=== PATIENT | male | born 1950 | race Caucasian/White ===

== ENCOUNTER 2021-04-10 07:05 | Day surgery (SDC) | payer MEDICARE ==
[~2021-04-10 07:05] MED LIST: LACTATED RINGERS 1,000 ML IV SCH
[2021-04-10 07:32] VITALS: TEMP 98.4
[2021-04-10 07:48] LABS: Glucose,Whole Blood 178 mg/dL (75-99)
[2021-04-10] MEDS ORDERED: LIDOCAINE 1% INJ 10MG/ML (20 ML MDV) ONE (08:43)
[2021-04-10] MEDS ORDERED: PROPOFOL 10 MG/ML 20 ML VIAL IV ONE (08:43)
--- NOTE | 2021-04-10 09:30 | P.PCN ---
Date of Procedure: 04/10/21 Description of Procedure: Brief history: Patient is a pleasant 71-year-old male presenting for outpatient EGD and colonoscopy for evaluation of symptoms of nausea and vomiting and diarrhea. The patient been seen in the clinic reporting intermittent episodes of nausea and vomiting as well as diarrhea. The diarrhea had become more frequent with the patient describing more bowel movements than he could count. Last colonoscopy over 10 years ago. Procedure performed: Esophagogastroduodenoscopy with biopsy Colonoscopy with biopsy Estimated blood loss: Minimal. Preoperative diagnosis: Nausea and vomiting, diarrhea, patient reports last colonoscopy over 10 years ago Anesthesia: MAC Procedure: After informed consent was obtained from the patient was brought into the endoscopy unit and IV sedation was administered by anesthesia under continuous monitoring. Initially upper endoscopy was done. The Olympus GF 190 video endoscope was inserted into the mouth and esophagus intubated without any difficulty and was gradually advanced into the stomach and duodenum and carefully examined. The bulb and second part of the duodenum appeared normal, with biopsies taken to rule out celiac sprue. The scope was then withdrawn into the stomach adequately insufflated with air and upon careful examination the antrum and body, cardia and fundus appeared normal, except for some mild scattered erythema suggestive of mild gastritis with biopsies of antrum and body taken. The scope was then withdrawn into the esophagus. The GE junction was located at 40 cm to the incisors. It was significant for 5 cm of LA grade D esophagitis in the distal esophagus with lower esophageal biopsies taken. Rest of the esophagus appeared normal. Patient tolerated the procedure well. At this time the patient continued to remain sedation. Initial digital rectal examination was normal. Olympus CF 190 video colonoscope was then inserted into the rectum and gradually advanced to the cecum without any difficulty. Careful examination was performed as the scope was gradually being withdrawn. The prep was excellent. The cecum, ascending colon, transverse colon, descending colon, sigmoid colon and rectum appeared normal. Small and large mouth diverticula noted in the sigmoid colon. Random biopsies taken of the normal-appearing right colon, left colon and terminal ileum. Retroflexion was performed in the rectum and no lesions were noted. Patient tolerated the procedure well. Impression: 1. LA grade D distal esophagitis. Mild gastritis. Biopsies of the duodenum, antrum and body, and lower esophagus. 2. Random biopsies taken of the right colon, left colon and terminal ileum. Moderate sigmoid diverticulosis. Otherwise normal-appearing colon from rectum to cecum. Recommendations: Findings of this examination were discussed with the patient as well as His . Okay to resume diet. Okay to resume medications. Await pathology from biopsies. Follow up in the GI clinic as scheduled. Recommend repeat colonoscopy in 10 years for screening for malignant neoplasm of the colon or sooner if signs or symptoms which weren't further evaluation develop.
[2021-04-10 09:45] VITALS: BP 151/78; PULSE 80; RESP 20
== END 2021-04-10 09:55 | disposition home or self-care (01) ==
LOC: ORWHC2ENDO 07:05
PROVIDERS: ATTEND Internal Medicine
DX: K29.50 Unspecified chronic gastritis without bleeding (principal); K52.9 Noninfective gastroenteritis and colitis, unspecified; K20.90 Esophagitis, unspecified without bleeding; K57.30 Diverticulosis of large intestine without perforation or abscess without bleeding; E11.9 Type 2 diabetes mellitus without complications; I10 Essential (primary) hypertension; G47.33 Obstructive sleep apnea (adult) (pediatric); Z79.84 Long term (current) use of oral hypoglycemic drugs; Z79.899 Other long term (current) drug therapy
CPT/HCPCS: 45380; 43239; J2001; J2704; 88305; 88312

== ENCOUNTER → 2021-07-06 | Outpatient (CLI) | payer MEDICARE ==
--- NOTE | 2021-07-11 12:05 | P.ARTDOP ---
Arterial Doppler LOWER EXTREMITY ARTERIAL DOPPLER: DATE OF SERVICE: 07/06/2021 Reason for study: Left calf pain. Doppler waveforms: Multiphasic throughout on the right with excellent digital waveforms. Atypical throughout on the left with somewhat diminished digital waveforms. Pulse volume recording: []. Pressure gradients: Above the low thigh bilaterally and across the knee on the left. Ankle-brachial indices: 0.83 on the right and 0.53 on the left. Toe brachial indices: 0.53 on the right, 0.41 on the left Impression: Mild right iliofemoral disease. Moderate left fem-pop disease with suspected left femoral component. Consider vascular specialty assessment depending on clinical presentation..
== END | disposition home or self-care (01) ==
LOC: RADUSWWP 13:28
PROVIDERS: ATTEND Family Medicine
DX: I70.212 Atherosclerosis of native arteries of extremities with intermittent claudication, left leg (principal)
CPT/HCPCS: 93923

== ENCOUNTER 2023-02-19 10:13 | Day surgery (SDC) | payer MEDICARE ==
[~2023-02-19 10:13] MED LIST changes: +ALPRAZolam 0.25 MG TAB PO PRN; +ALPRAZolam 0.5 MG TAB PO PRN; +ASPIRIN 325 MG TAB PO PRN; +HEPARIN SODIUM,PORCINE 10,000 UNIT in SODIUM CHLORIDE 0.9% 1,000 ML IRRIGATION PRN; +HEPARIN SODIUM,PORCINE 2,500 UNIT in SODIUM CHLORIDE 0.9% 250 ML IRRIGATION PRN; -LACTATED RINGERS 1,000 ML IV SCH; +SODIUM CHLORIDE 0.9% 1,000 ML in EMPTY BAG 1 BAG IV ONE; +ZOLPIDEM 5 MG TAB PO PRN
[2023-02-19 10:52] LABS: Glucose,Whole Blood 127 mg/dL (70-110)
[2023-02-19 10:53] VITALS: RESP 18; TEMP 98.7
[2023-02-19 11:15] LABS: Basophils % (A) 1 %; Eosinophils # (A) 0.2 k/uL (0-0.7); Eosinophils % (A) 2 %; HCT 37.7 % (39.0-53.0); HGB 13.1 gm/dL (13.0-17.5); Lymphocytes # (A) 1.9 k/uL (1.0-4.8); Lymphocytes % (A) 25 %; MCHC 34.8 g/dL (31.0-37.0); MCV 86.1 fL (80.0-100.0); Mean Platelet Volume 8.1; Monocytes # (A) 0.5 k/uL (0-1.0); Monocytes % (A) 7 %; Neutrophils % (A) 63 %; Platelet Count 177 k/uL (150-450); RBC 4.37 m/uL (4.30-5.90); WBC 7.9 k/uL (3.8-10.6)
[2023-02-19 11:22] LABS: Calcium 8.7 mg/dL (8.4-10.2)
[2023-02-19] MEDS ORDERED: fentaNYL (PF) 50 MCG/ML 2 ML AMP IV ONE (13:03)
[2023-02-19] MEDS ORDERED: MIDAZOLAM 2 MG/2 ML VIAL IV ONE (13:03)
[2023-02-19] MEDS ORDERED: LIDOCAINE 1% INJ 10MG/ML (5 ML VIAL-PF) SQ ONE (13:03)
[2023-02-19] MEDS ORDERED: VERAPAMIL SYRINGE (5 MG/10 ML) INTRAARTER ONE (13:07)
[2023-02-19] MEDS ORDERED: IOPAMIDOL-250 100ML BTL INTRAARTER ONE ×2 (13:36)
--- NOTE | 2023-02-19 13:53 | P.OP ---
Date of Procedure: 02/19/23 Description of Procedure: Preoperative diagnosis: Claudication, peripheral arterial disease Postoperative diagnosis: Same Procedure: Ultrasound-guided right radial artery access Aortogram with runoffs Moderate conscious sedation 32 minutes certified RN administration with hemodynamic monitoring Surgeon: Any Benites D.O. EBL: Less than 5 mL IV fluids: See records Urine output: Not measured Drains: None Complications: None immediately apparent Condition: Stable to recovery Operative indication and findings: Patient is a 73-year-old male with severe lifestyle limiting lower extremity arterial claudication. He has abnormal ABIs and presents today for an angiogram with runoffs. Procedure in detail: Patient was taken to the special suite and placed in supine position. Bilateral groins are prepped and draped in usual sterile fashion. A timeout was performed, all parties were in agreement. Using ultrasound, the right radial artery was identified, the skin overlying was anesthetized 1% lidocaine plain. A permanent image was stored. Seldinger technique was used to place a 5-Peruvian sheath. Catheters and wires were then used to access the abdominal aorta. An aortogram was performed. The catheter was then advanced to the level of the bifurcation. Bilateral lower extremity runoffs were performed. The catheters and wires were then removed. The sheath was removed is here band was placed for hemostasis. Angiographic findings the The aorta appears patent, normal gross caliber. Visualized portions of the celiac and superior mesenteric artery appear patent without significant disease. The renal arteries bilaterally are patent without significant disease. Multiple lumbar vessels are visualized. On the right the common, internal and external iliac arteries are patent without obvious significant disease. On the left, there does appear to be some degree of iliac artery stenosis with calcium however does not appear flow limiting. The external and internal iliac arteries appear patent without significant disease. On the right, there is a large exophytic calcium deposits in the common femoral artery as well as in the proximal superficial femoral artery. Vessels are large and appear relatively widely patent otherwise. There is mild disease in the profunda. The superficial femoral artery continues on without significantly into level of the abductor canal with again large exophytic calcific disease. The popliteal artery as well as limb secured by knee prosthetic, but again does appear to have modest disease. There appears to be three-vessel takeoff at the proximal calf and 3 vessels through the calf. There are 2 vessels appeared at the ankle, the anterior tibial and posterior tibial. On the left, in the common femoral artery there is moderate amounts of exophytic calcific disease. The superficial femoral artery appears relatively patent, there are multiple areas of calcium, less than on the right. The profunda appears patent without significant disease. Through the size superficial femoral artery appears patent. There is severe significant disease of the abductor canal with possibly short segment occlusion. Again the popliteal artery is difficult to visualize beyond the knee prosthetic. There is three- vessel takeoff in the proximal calf. Visualization is difficult diminutive however there is an obvious posterior tibial artery at the ankle while slow it appears the other arteries are clear. He through the distal leg as well. Plan - Discharge Summary Discharge Rx Participant: No New Discharge Prescriptions: No Action Aspirin [Adult Low Dose Aspirin EC] 81 mg PO DAILY Ascorbic Acid [Vitamin C] 1,000 mg PO DAILY Cholecalciferol (Vitamin D3) [Vitamin D3 (5000 Iu)] 125 mcg PO DAILY Multivit-Min/FA/Lycopen/Lutein [Centrum Silver Tablet] 1 each PO DAILY Atorvastatin Calcium 10 mg PO DAILY Terazosin HCl 1 tab PO DAILY sitaGLIPtin [Januvia] 100 mg PO DAILY metFORMIN HCL [Glucophage] 1,000 mg PO AC-BID Benazepril HCl [Lotensin] 20 mg PO HS glipiZIDE [Glucotrol] 10 mg PO AC-BID Levothyroxine Sodium [Synthroid] 50 mcg PO DAILY Discharge Medication List Ascorbic Acid [Vitamin C] 1,000 mg PO DAILY 04/06/21 [History] Aspirin [Adult Low Dose Aspirin EC] 81 mg PO DAILY 04/06/21 [History] Benazepril HCl [Lotensin] 20 mg PO HS 04/06/21 [History] Cholecalciferol (Vitamin D3) [Vitamin D3 (5000 Iu)] 125 mcg PO DAILY 04/06/21 [History] Multivit-Min/FA/Lycopen/Lutein [Centrum Silver Tablet] 1 each PO DAILY 04/06/21 [History] glipiZIDE [Glucotrol] 10 mg PO AC-BID 04/06/21 [History] metFORMIN HCL [Glucophage] 1,000 mg PO AC-BID 04/06/21 [History] sitaGLIPtin [Januvia] 100 mg PO DAILY 04/06/21 [History] Atorvastatin Calcium 10 mg PO DAILY 02/17/23 [History] Levothyroxine Sodium [Synthroid] 50 mcg PO DAILY 02/17/23 [History] Terazosin HCl 1 tab PO DAILY 02/17/23 [History] Follow up Appointment(s)/Referral(s): Any Benites DO [STAFF PHYSICIAN] - 10 Days Activity/Diet/Wound Care/Special Instructions: Resume home medications. Resume home diet. Continue amputation as best as tolerated. Discharge Disposition: HOME SELF-CARE
--- NOTE | 2023-02-19 14:23 | IR ---
EXAMINATION TYPE: IR angio abdominal w runoff DATE OF EXAM: 02/19/2023 COMPARISON: NONE HISTORY: Fluoroscopy time. Fluoroscopy was provided to the referring clinician.
[2023-02-19 15:47] VITALS: PULSE 71
[2023-02-19 16:18] VITALS: BP 160/70
== END 2023-02-19 16:19 | disposition home or self-care (01) ==
LOC: CATHCVL 10:13
PROVIDERS: ATTEND Surgery
DX: I70.213 Atherosclerosis of native arteries of extremities with intermittent claudication, bilateral legs (principal); I25.10 Atherosclerotic heart disease of native coronary artery without angina pectoris; E11.51 Type 2 diabetes mellitus with diabetic peripheral angiopathy without gangrene; I10 Essential (primary) hypertension; E03.9 Hypothyroidism, unspecified; G47.30 Sleep apnea, unspecified; Z79.82 Long term (current) use of aspirin; Z79.84 Long term (current) use of oral hypoglycemic drugs; Z79.890 Hormone replacement therapy; Z99.89 Dependence on other enabling machines and devices; H91.90 Unspecified hearing loss, unspecified ear; Z87.19 Personal history of other diseases of the digestive system; M19.90 Unspecified osteoarthritis, unspecified site; Z87.891 Personal history of nicotine dependence; Z96.653 Presence of artificial knee joint, bilateral; Z98.890 Other specified postprocedural states
CPT/HCPCS: 36200; 75625; 75716; 76937; 80048; 85025; C1769 ×3; C1894; J2250; J2001; J3010; Q9966

== ENCOUNTER → 2023-04-30 | Outpatient (CLI) | payer MEDICARE ==
--- NOTE | 2023-04-30 16:58 | CA ---
Transthoracic Echo Report Name: Dayron Chandra Age: 73 Gender: M : 1950 Exam Date: 04/30/2023 14:00 Exam Location: [facility] Ht (in): 74 Wt (lb): 250 Ordering Physician: Prema Flores MD Attending/Referring Phys: Prema Flores MD Estate Planning Attorney Sarah Diggs GREGORY Procedure CPT: Indications: R01.1 CARDIAC MURMUR UNSPECIFIED Cardiac Hx: Technical Quality: Fair Contrast 1: Total Dose (mL): Contrast 2: Total Dose (mL): MEASUREMENTS (Male / Female) Normal Values 2D ECHO LV Diastolic Diameter PLAX 4.2 cm 4.2 - 5.9 / 3.9 - 5.3 cm LV Systolic Diameter PLAX 2.4 cm IVS Diastolic Thickness 1.7 cm 0.6 - 1.0 / 0.6 - 0.9 cm LVPW Diastolic Thickness 1.7 cm 0.6 - 1.0 / 0.6 - 0.9 cm LV Relative Wall Thickness 0.8 LA Volume 62.5 cm??? 18 - 58 / 22 - 52 cm??? M-MODE Aortic Root Diameter MM 3.4 cm LA Systolic Diameter MM 4.0 cm LA Ao Ratio MM 1.2 AV Cusp Separation MM 1.8 cm DOPPLER AV Peak Velocity 185.3 cm/s AV Peak Gradient 13.7 mmHg AV Mean Velocity 133.2 cm/s AV Mean Gradient 8.0 mmHg AV Velocity Time Integral 32.5 cm LVOT Peak Velocity 116.1 cm/s LVOT Peak Gradient 5.4 mmHg LVOT Velocity Time Integral 26.1 cm MV Area PHT 3.4 cm??? Mitral E Point Velocity 80.8 cm/s Mitral A Point Velocity 124.1 cm/s Mitral E to A Ratio 0.7 MV Deceleration Time 222.5 ms TR Peak Velocity 283.6 cm/s TR Peak Gradient 32.2 mmHg Right Ventricular Systolic Press 37.2 mmHg FINDINGS Left Ventricle Severely increased left ventricular wall thickness. Left ventricular cavity size normal. Normal left ventricular systolic function with no obvious regional wall motion abnormalities. Left ventricular ejection fraction is estimated at 55-60 %. Right Ventricle Normal right ventricular size and function. Mild pulmonary hypertension. Right Atrium Normal right atrial size. Left Atrium Mildly increased left atrial volume. Mildly increased left atrial area. Mitral Valve Structurally normal mitral valve. No mitral stenosis, regurgitation or prolapse. Aortic Valve No aortic valve stenosis or regurgitation. Tricuspid Valve Structurally normal tricuspid valve. Mild tricuspid regurgitation. Pulmonic Valve Trace pulmonic regurgitation. Pericardium No pericardial effusion. Aorta Normal size aortic root and proximal ascending aorta. CONCLUSIONS Normal LV function Mild pulmonary hypertension Previewed by: Dr. Josafat Kerns MD (Electronically Signed) Final Date: 30 Apr 2023 16:57
== END ==
LOC: RADECHMAIN 13:53
PROVIDERS: ATTEND Family Medicine
DX: I27.20 Pulmonary hypertension, unspecified (principal); R01.1 Cardiac murmur, unspecified
CPT/HCPCS: 93306

== ENCOUNTER 2023-06-26 10:11 | Inpatient (IN) | payer MEDICARE ==
[~2023-06-26 10:11] MED LIST changes: -ALPRAZolam 0.25 MG TAB PO PRN; -ALPRAZolam 0.5 MG TAB PO PRN; -ASPIRIN 325 MG TAB PO PRN; +DEXAMETHASONE SOD PHOSPHATE 4 MG/ML 1 ML VIAL IV ONE; -HEPARIN SODIUM,PORCINE 10,000 UNIT in SODIUM CHLORIDE 0.9% 1,000 ML IRRIGATION PRN; -HEPARIN SODIUM,PORCINE 2,500 UNIT in SODIUM CHLORIDE 0.9% 250 ML IRRIGATION PRN; +HYDROmorphone 0.5 MG/0.5 ML SYRINGE IVP PRN; +LACTATED RINGERS 1,000 ML IV SCH; +ONDANSETRON 4 MG/2 ML VIAL IVP ONE; -SODIUM CHLORIDE 0.9% 1,000 ML in EMPTY BAG 1 BAG IV ONE; -ZOLPIDEM 5 MG TAB PO PRN
[2023-06-26 11:02] LABS: Glucose,Whole Blood 179 mg/dL (70-110)
[2023-06-26] MEDS ORDERED: HYDROmorphone (PF) 1 MG/ML ONE (12:33)
[2023-06-26] MEDS ORDERED: HEPARIN SODIUM,PORCINE 10,000 UNIT/ML 1 ML VIAL ONE (12:33)
[2023-06-26] MEDS ORDERED: SUCCINYLCHOLINE CHLORIDE 200 MG/10 ML VIAL IV ONE (12:33)
[2023-06-26] MEDS ORDERED: GLYCOPYRROLATE 0.2 MG/ML 2 ML VIAL ONE (12:33)
[2023-06-26] MEDS ORDERED: PROPOFOL 10 MG/ML 20 ML VIAL IV ONE (12:33)
[2023-06-26] MEDS ORDERED: PROTAMINE SULFATE 10 MG/ML 5 ML VIAL IV ONE (12:33)
[2023-06-26] MEDS ORDERED: LIDOCAINE 2% INJ 20 MG/ML (2 ML VIAL) ONE (12:33)
[2023-06-26] MEDS ORDERED: NEOSTIGMINE 1 MG/ML 10 ML VIAL ONE (12:33)
[2023-06-26] MEDS ORDERED: ROCURONIUM 10 MG/ML (5 ML VIAL) IV ONE (12:33)
[2023-06-26] MEDS ORDERED: fentaNYL (PF) 50 MCG/ML 2 ML AMP ONE (12:33)
[2023-06-26] MEDS ORDERED: GELATIN SPONGE,ABSORB (LARGE) 1 EACH SPONGE TOPICAL ONE (13:10)
[2023-06-26] MEDS ORDERED: HEPARIN SODIUM,PORCINE 10,000 UNIT in SODIUM CHLORIDE 0.9% 1,000 ML IRRIGATION ONE (13:10)
[2023-06-26] MEDS ORDERED: ceFAZolin 2 GM in SODIUM CHLORIDE 0.9% 500 ML 500 ML IRRIGATION ONE (13:10)
[2023-06-26] MEDS ORDERED: THROMBIN (BOVINE) 5,000 UNIT VIAL TOPICAL ONE (13:11)
[2023-06-26] MEDS ORDERED: LACTATED RINGERS 1,000 ML IV ONE (13:45)
[2023-06-26] MEDS ORDERED: MORPHINE SULFATE 4 MG/ML SYRINGE IV PRN (15:33)
[2023-06-26] MEDS ORDERED: HYDROcodone/APAP 5-325MG 1 EACH TAB PO PRN (15:33)
[2023-06-26] MEDS ORDERED: ONDANSETRON 4 MG/2 ML VIAL IVP PRN (15:33)
--- NOTE | 2023-06-26 15:33 | P.OP ---
Date of Procedure: 06/26/23 Description of Procedure: Preoperative diagnosis: Right femoral artery occlusive disease, lifestyle limiting claudication Postoperative diagnosis: Same Procedure: Right common and superficial femoral endarterectomy with patch angioplasty Surgeon: Any Benites D.O. EBL: 100 mL IV fluids: See records Urine output: See records Drains: None Complications: None immediately apparent Condition: Stable to recovery Operative indication and findings: Patient is a 73-year-old male who has lifestyle limiting claudication and can barely walk out to his mailbox prior to getting significant pain in his legs. On previous angiogram he was found to have dense calcific deposits in his bilateral femoral arteries as well as superficial femoral arteries. Given the amount of disease he was discussed going forward with open treatment Procedure in detail: The patient was taken to the operative suite and placed in supine position. Bilateral groins prepped and draped in usual sterile fashion. A preprocedure timeout was performed and all parties are in agreement. A vertical incision was made in the right groin with the scalpel. It was deepened through subcutaneous tissues with electrocautery. The encountered lymphatics were ligated and divided. The femoral sheath was opened sharply. The common femoral artery was dissected free circumferentially. The dissection was extended proximally to the level of the inguinal ligament, and distally to include the superficial femoral and profunda femoris arteries. Given the amount of disease, further 8-9 cm of the superficial femoral artery was dissected free. There did appear to be a an area of soft vessel therefore it was encircled at this level. The other vessels were encircled with vessel loops.. ACTs were monitored and the patient was heparinized. Once heparinization was adequate, flow was occluded through the vessel. An 11 blade was utilized and arteriotomy is made the Cantu-Rudolph scissors was utilized to enlarge the arteriotomy. An endarterectomy was performed with an eversion endarterectomy at the profunda femoris. There was significant and severe large protruding calcific deposits through the common femoral and superficial femoral artery proximally. The endarterectomized surface was cleared of all debris. A bovine pericardial patch was utilized and anastomosis was created utilizing 6-0 Prolene. The anastomosis was flushed and flow was reinstituted. Hemostasis was achieved with interrupted sutures of 6-0 Prolene and thrombin and Gelfoam. A Doppler was used and revealed multiphasic flow distal to the anastomosis through the superficial femoral and deep femoral arteries. At that point, the wound was copiously irrigated with antibiotic solution. The femoral sheath was reapproximated with interrupted sutures of 2-0 Vicryl. The subcuticular tissue was reapproximated with 3-0 Vicryl. The skin was reprepped with running sutures of 4-0 Monocryl. Dressing was placed. The patient was awakened from surgery, extubated and transferred to PACU in stable condition and tolerated the procedure well.
[2023-06-26] MEDS ORDERED: LACTATED RINGERS 1,000 ML IV SCH (15:45)
[2023-06-26] MEDS ORDERED: DEXTROSE 50% SYRINGE 50 ML IVP PRN ×2 (15:47)
[2023-06-26 15:58] LABS: Glucose,Whole Blood 165 mg/dL (70-110)
[2023-06-26] MEDS ORDERED: hydrALAZINE HCL 20 MG/ML 1 ML VIAL IVP PRN (19:10)
[2023-06-26] MEDS: INSULIN ASPART (NovoLOG) 100 UNIT/ML VIAL SQ SCH ×2 (19:24→20:52)
[2023-06-26 20:23] LABS: Glucose,Whole Blood 171 mg/dL (70-110)
[2023-06-26] MEDS: lisinopriL 20 MG TAB PO SCH (20:52)
[2023-06-26] MEDS: VIT A,C & E-LUTEIN-MINERALS 1 EACH TAB PO SCH (20:52)
[2023-06-26] MEDS: ceFAZolin 3 GM in SODIUM CHLORIDE 0.9% 100 ML IVPB SCH (20:52)
[2023-06-26] MEDS: DOXAZOSIN 4 MG TAB PO SCH (20:53)
[2023-06-26] MEDS ORDERED: DOXAZOSIN 4 MG TAB PO SCH (21:00)
[2023-06-26] MEDS ORDERED: ATORVASTATIN 10 MG TAB PO SCH (21:00)
[2023-06-27] MEDS: ceFAZolin 3 GM in SODIUM CHLORIDE 0.9% 100 ML IVPB SCH (05:22)
[2023-06-27 06:01] LABS: Glucose,Whole Blood 138 mg/dL (70-110)
[2023-06-27] MEDS ORDERED: LEVOTHYROXINE 50 MCG TAB PO SCH (06:30)
[2023-06-27] MEDS: INSULIN ASPART (NovoLOG) 100 UNIT/ML VIAL SQ SCH (06:33)
[2023-06-27 06:36] VITALS: RESP 16; TEMP 98.2
[2023-06-27] MEDS ORDERED: MULTIVITAMINS, THERA 1 EACH TAB PO SCH (09:00)
[2023-06-27] MEDS ORDERED: CHOLECALCIFEROL 125 MCG (5000 IU) TABLET PO SCH (09:00)
[2023-06-27] MEDS: lisinopriL 20 MG TAB PO SCH (09:07)
[2023-06-27] MEDS: VIT A,C & E-LUTEIN-MINERALS 1 EACH TAB PO SCH (09:07)
[2023-06-27] MEDS: DOXAZOSIN 4 MG TAB PO SCH (09:07)
[2023-06-27] MEDS ORDERED: ASPIRIN 81 MG PO SCH (09:30)
[2023-06-27] MEDS ORDERED: CLOPIDOGREL 75 MG TAB PO SCH (09:30)
[2023-06-27] MEDS ORDERED: amLODIPine 10 MG TAB PO SCH (10:00)
--- NOTE | 2023-06-27 10:51 | P.DS ---
Providers Date of admission: 06/26/23 10:11 Expected date of discharge: 06/27/23 Attending physician: Any Benites DO Consults: 06/26/23 15:33 Consult Physician Routine Consulting Provider: Gissel Zelaya Consult Reason/Comments: med management, dm, htn Do you want consulting provider notified?: Yes Primary care physician: [facility] Course: 73-year-old male with right femoral artery occlusive disease and lifestyle limiting claudication presented for revascularization. He is postop day #1 for right common and superficial femoral endarterectomy with patch angioplasty. He states he has had no pain. Benites catheter has been discontinued and he voided a small amount. He has been up to the bathroom without any pain in his lower extremity. He denies any abdominal pain, chest pain, shortness of breath, fevers or chills. He has a Prevena dressing in place over right groin incision with good suction. Right lower extremity warm to the touch, good capillary refill, PT and DP Doppler signals present. Patient is voicing he would like to be discharged. Discharge instructions reviewed with patient including keeping Prevena dressing in place for 7 days. Sponge bath until dressing removed. No heavy lifting or strenuous activity. No driving until cleared by Dr. Benites at follow-up visit. Patient will be started on Plavix 75 mg daily. Exam General appearance: The patient is alert, oriented, appears in no acute distress. HET: Head is normocephalic and atraumatic. Neck: Supple. Heart: Regular. Lungs: Equal expansion, normal respiratory effort. Abdomen: Soft, nontender, nondistended. Extremities: Normal skin color and turgor. Right groin with Prevena dressing in place with good suction. Right lower extremity warm to the touch, good capilla ry refill with PT and DP Doppler signals present. Neurological: No focal deficits. Strength and sensation are grossly intact. Assessment 1. Postop day #1 for right common and superficial femoral endarterectomy with patch angioplasty 2. 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 Hypertension 4. Diabetes mellitus 5. Sleep apnea with CPAP Plan Plan for discharge today. Discharge instructions reviewed with patient including peripheral venous dressing to be in place for 7 days, sponge bath until dressing comes off, no heavy lifting or strenuous activity, no driving until cleared by Dr. Benites. Follow-up in 10 days to 2 weeks. Patient being started on Plavix. Medical team prescribed Norvasc 10 mg, discussed with them they recommend continuing and will escribe. The impression and plan of care has been dictated as directed. Dr. Benites I performed a history and examination of this patient, discussed the same with the dictator. I agree with the dictator's note ,documented as a scribe. Any additional findings or plans will be noted. Procedures: Preoperative diagnosis: Right femoral artery occlusive disease, lifestyle limiting claudication Postoperative diagnosis: Same Procedure: Right common and superficial femoral endarterectomy with patch angioplasty Patient Condition at Discharge: Stable Plan - Discharge Summary Discharge Rx Participant: No New Discharge Prescriptions: No Action Aspirin [Adult Low Dose Aspirin EC] 81 mg PO DAILY Cholecalciferol (Vitamin D3) [Vitamin D3 (5000 Iu)] 125 mcg PO DAILY Multivit-Min/FA/Lycopen/Lutein [Centrum Silver Tablet] 1 each PO DAILY Atorvastatin Calcium 10 mg PO HS Terazosin HCl 5 mg PO DAILY Preservision(Unk) 1 tab PO BID metFORMIN HCL [Glucophage] 1,000 mg PO DAILY Benazepril HCl [Lotensin] 20 mg PO DAILY glipiZIDE [Glucotrol] 10 mg PO AC-BID Levothyroxine Sodium [Synthroid] 50 mcg PO DAILY Terazosin HCl 10 mg PO HS Discharge Medication List Aspirin [Adult Low Dose Aspirin EC] 81 mg PO DAILY 04/06/21 [History] Benazepril HCl [Lotensin] 20 mg PO DAILY 04/06/21 [History] Cholecalciferol (Vitamin D3) [Vitamin D3 (5000 Iu)] 125 mcg PO DAILY 04/06/21 [History] Multivit-Min/FA/Lycopen/Lutein [Centrum Silver Tablet] 1 each PO DAILY 04/06/21 [History] glipiZIDE [Glucotrol] 10 mg PO AC-BID 04/06/21 [History] metFORMIN HCL [Glucophage] 1,000 mg PO DAILY 04/06/21 [History] Atorvastatin Calcium 10 mg PO HS 02/17/23 [History] Levothyroxine Sodium [Synthroid] 50 mcg PO DAILY 02/17/23 [History] Terazosin HCl 5 mg PO DAILY 02/17/23 [History] Preservision(Unk) 1 tab PO BID 06/20/23 [History] Terazosin HCl 10 mg PO HS 06/20/23 [History] Follow up Appointment(s)/Referral(s): Any Benites DO [STAFF PHYSICIAN] - 1 Week Patient Instructions/Handouts: Clopidogrel (By mouth), Remote Superficial Femoral Artery Endarterectomy (DC) Activity/Diet/Wound Care/Special Instructions: No driving until cleared by Dr. Benites after next follow-up appointment. Follow- up in 10-14 days Avoid heavy lifting greater than 10 lbs , pushing, pulling, straining, flights of stairs for 2 weeks. Sponge bathing until right groin dressing removed. Then okay to shower no baths, pools, soaking in tubs until cleared by to avoi surgeon due to risk of infection. signs of infection ie: fever, rash, drainage from puncture site, swelling contact doctor or return to ER immediately. Heavy bleeding from puncture site apply firm direct pressure and return to ER. Do not attempt to drive self. low sodium/low fat diet Keep right groin Prevena dressing in place until 07/03/2023, then may remove it and throw away. Discharge Disposition: HOME SELF-CARE
[2023-06-27 10:52] LABS: Basophils % (A) 0 %; Eosinophils # (A) 0.1 k/uL (0-0.7); Eosinophils % (A) 1 %; HGB 12.1 gm/dL (13.0-17.5); Lymphocytes # (A) 1.5 k/uL (1.0-4.8); Lymphocytes % (A) 14 %; MCH 28.9 pg (25.0-35.0); MCHC 33.5 g/dL (31.0-37.0); MCV 86.4 fL (80.0-100.0); Mean Platelet Volume 8.2; Monocytes % (A) 9 %; Neutrophils # (A) 8.1 k/uL (1.3-7.7); Neutrophils % (A) 75 %; Platelet Count 176 k/uL (150-450); RBC 4.16 m/uL (4.30-5.90); RDW 13.3 % (11.5-15.5); WBC 10.8 k/uL (3.8-10.6)
[2023-06-27 11:08] LABS: African American GFR (CKD) 61 (>60 ml/min/1.73 sqM); Anion Gap 10 mmol/L; Blood Urea Nitrogen 19 mg/dL (9-20); Calcium 8.6 mg/dL (8.4-10.2); Carbon Dioxide 21 mmol/L (22-30); Chloride 102 mmol/L (98-107); Glucose 176 mg/dL (74-99); Non-African American GFR(CKD) 53 (>60 ml/min/1.73 sqM); Sodium 133 mmol/L (137-145)
[2023-06-27 11:44] LABS: Glucose,Whole Blood 193 mg/dL (70-110)
[2023-06-27 11:46] VITALS: BP 163/68; PULSE 125
--- NOTE | 2023-06-27 14:42 | CONS ---
CONSULTATION REASON FOR CONSULTATION: Advice regarding hypertension, other medical problems, requested by Vascular Surgery. HISTORY OF PRESENT ILLNESS: This is a 73-year-old gentleman with a past medical history of multiple interventions, was admitted after right common superficial femoral endarterectomy with patch angioplasty by Dr. Benites. The patient is a high blood pressure patient. The patient is being started on Norvasc at this time. There is no history of any fever, rigors or chills. PAST MEDICAL HISTORY: Reviewed include peripheral vascular disease, diabetes, and hypertension. Rest of the history and rest of the chart are also reviewed. HOME MEDICATIONS: Reviewed include metformin. Doses and rest of medications reviewed. ALLERGIES: None. FAMILY HISTORY: History of breast cancer. SOCIAL HISTORY: Previous history of smoking. REVIEW OF SYSTEMS: A 14-point review of systems is negative except as mentioned earlier. PHYSICAL EXAMINATION: VITAL SIGNS: Pulse is 85, blood pressure 179/77, respirations 16. HEENT: Conjunctivae normal. Oral mucosa moist. CARDIOVASCULAR: S1 and S2. RESPIRATORY: Clear to auscultation. ABDOMEN: Soft, nontender. LEGS: Status post surgery. NERVOUS SYSTEM: No focal deficits. LABORATORY DATA: WBC 10.8, rest of the labs are reviewed. ASSESSMENT: 1. Status post right common and superficial femoral endarterectomy with patch angioplasty. 2. Hypertension. 3. Diabetes mellitus, type 2. 4. Multiple medical issues. RECOMMENDATIONS: This is a 73-year-old gentleman who presented with multiple complex medical issues, we will monitor the patient closely. As mentioned earlier, we will initiate Norvasc. Monitor blood pressure closely. Resume the rest of medications. Follow with primary physician and rest of the recommendations per Vascular Surgery. MMODL / IJN: [id number] /
== END 2023-06-27 12:34 | disposition home or self-care (01) | DRG 254 ==
LOC: 2ORMAIN 10:11 → 3SCARD 18:00
PROVIDERS: ADMIT Surgery; ATTEND Surgery
PROC: 04UK0JZ Supplement Right Femoral Artery with Synthetic Substitute, Open Approach (ICD-10-PCS; 2023-06-26)
PROC: 04CK0ZZ Extirpation of Matter from Right Femoral Artery, Open Approach (ICD-10-PCS; principal; 2023-06-26 12:00)
DX: E11.51 Type 2 diabetes mellitus with diabetic peripheral angiopathy without gangrene (principal); I70.218 Atherosclerosis of native arteries of extremities with intermittent claudication, other extremity; I70.211 Atherosclerosis of native arteries of extremities with intermittent claudication, right leg; G47.30 Sleep apnea, unspecified; I10 Essential (primary) hypertension; Z87.891 Personal history of nicotine dependence; Z79.84 Long term (current) use of oral hypoglycemic drugs; Z79.82 Long term (current) use of aspirin; Z79.899 Other long term (current) drug therapy
CPT/HCPCS: 80048; 83036; 85025; 86850; 86900; 86901

== ENCOUNTER 2024-09-01 11:38 | Day surgery (SDC) | payer MEDICARE ==
[~2024-09-01 11:38] MED LIST changes: +ALPRAZolam 0.25 MG TAB PO PRN; +ALPRAZolam 0.5 MG TAB PO PRN; +ASPIRIN 325 MG TAB PO PRN; -DEXAMETHASONE SOD PHOSPHATE 4 MG/ML 1 ML VIAL IV ONE; +HEPARIN SODIUM,PORCINE (1 ML) 2,500 UNIT in SODIUM CHLORIDE 0.9% 250 ML IRRIGATION PRN; +HEPARIN SODIUM,PORCINE 10,000 UNIT in SODIUM CHLORIDE 0.9% 1,000 ML IRRIGATION PRN; -HYDROmorphone 0.5 MG/0.5 ML SYRINGE IVP PRN; -LACTATED RINGERS 1,000 ML IV SCH; -ONDANSETRON 4 MG/2 ML VIAL IVP ONE; +ZOLPIDEM 5 MG TAB PO PRN
[2024-09-01] MEDS: IV FLUID CONTINUATION 1,000 ML IV ONE (12:15)
[2024-09-01 12:16] LABS: Basophils % (A) 1 %; Eosinophils # (A) 0.2 k/uL (0-0.7); Eosinophils % (A) 3 %; HCT 39.8 % (39.0-53.0); HGB 13.1 gm/dL (13.0-17.5); Lymphocytes # (A) 1.6 k/uL (1.0-4.8); Lymphocytes % (A) 23 %; MCV 87.9 fL (80.0-100.0); Mean Platelet Volume 7.8; Monocytes # (A) 0.5 k/uL (0-1.0); Monocytes % (A) 8 %; Neutrophils # (A) 4.4 k/uL (1.3-7.7); Neutrophils % (A) 64 %; Platelet Count 204 k/uL (150-450); RBC 4.53 m/uL (4.30-5.90); RDW 14.2 % (11.5-15.5); WBC 6.9 k/uL (3.8-10.6)
[2024-09-01 12:17] VITALS: RESP 16; TEMP 98.3
[2024-09-01] MEDS: EMPTY BAG 1 BAG with SODIUM CHLORIDE 0.9% 1,000 ML IV SCH (12:24)
[2024-09-01 12:29] LABS: African American GFR (CKD) 50 (>60 ml/min/1.73 sqM); Anion Gap 11 mmol/L; Blood Urea Nitrogen 26 mg/dL (9-20); Calcium 8.8 mg/dL (8.4-10.2); Carbon Dioxide 23 mmol/L (22-30); Chloride 101 mmol/L (98-107); Glucose 123 mg/dL (74-99); Non-African American GFR(CKD) 43 (>60 ml/min/1.73 sqM); Potassium 4.5 mmol/L (3.5-5.1); Sodium 135 mmol/L (137-145)
[2024-09-01] MEDS: LIDOCAINE 1% INJ 10MG/ML (20 ML MDV) SQ ONE (13:45)
[2024-09-01] MEDS: IOPAMIDOL-250 100ML BTL INTRAARTER ONE (14:00)
--- NOTE | 2024-09-01 16:41 | IR ---
EXAMINATION TYPE: IR angio abdominal w runoff DATE OF EXAM: 09/01/2024 2:14 PM COMPARISON: Pre Operative Images if available both CT/MRI or plain film CLINICAL INDICATION: Male, 74 years old with history of AO WITH RO, 1.3 MINS FLT, 0.422GY; TECHNIQUE: IR angio abdominal w runoff, multiple fluoroscopic images provided for procedure. Total fluoroscopy time: 1.3 minutes Total submitted images to PACS: [id number] DAP: 627.80 uGym2 or equivalent. IMPRESSION: 1. Report was generated for administrative purposes only. 2. Please see the operative/procedural note for further details. [facility], , 09/01/2024 4:39 PM
[2024-09-01 17:04] VITALS: BP 168/70
[2024-09-01 17:06] VITALS: PULSE 64
--- NOTE | 2024-09-02 16:08 | P.OP ---
Date of Procedure: 09/01/24 Description of Procedure: Preoperative diagnosis: Roosevelt 3 peripheral arterial disease bilateral lower extremity Postoperative diagnosis: Same Procedure: Ultrasound-guided right radial artery access Placement of catheter in infrarenal abdominal aorta, selective second order, from radial approach Aortogram with bilateral lower extremity runoffs Surgeon: Any Benites D.O. EBL: Less than 5 cc IV fluids: See records Urine output: Not measured Drains: None Complications: None immediately apparent Condition: Stable to recovery Operative indication and findings: Patient is 74 a-year-old with peripheral vascular disease. On workup and evaluation was found to have abnormal ABIs prompting recommendations for an angiogram. He has a history of a previous right femoral endarterectomy and patch angioplasty but continues to have significant pain with ambulation. Risks and benefits including but not limited to bleeding, infection, injury to the vessel, stroke, cardiopulmonary risks and ischemic changes to the extremities were discussed. They seemingly understood this willing to proceed. Procedure in detail: Patient was taken to the special suite and placed in supine position. The right upper extremity was prepped and draped in usual sterile fashion. A preprocedural timeout was performed, all parties were in agreement. Using the ultrasound, the radial artery was identified. The skin overlying was anesthetized with 1% lidocaine plain. The artery was patent without significant calcific disease and a permanent image was stored. Under direct visualization, the artery was accessed and Seldinger technique was used to place a 5 slender sheath. Catheters and wires were then used to selectively place a catheter across the subclavian, into the aortic arch and then selectively in the descending thoracic aorta and down into the abdominal aorta. Aortogram was performed. Catheter was then advanced to the level of the iliac bifurcation. A bilateral lower extremity step-off was performed. After satisfactory images, catheters and wires were removed. The sheath was removed and a TR band was placed. Angiographic interpretation: Visualized portions of the aorta appeared normal in course and caliber, slightly low contrast volume however visualized portions of the celiac, SMA, renal arteries bilaterally and lumbar vessels appear patent without significant disease. On the right the common, internal and external iliac arteries appear patent without significant disease. There is potentially some disease at the level of the internal iliac artery however no limitations of flow visualized. Evidence of previous femoral endarterectomy is identified. On the left, there appears to be significant calcific disease in the proximal common iliac artery. The external iliac artery appears patent with no significant disease. The internal appears occluded at its takeoff with reconst itution via large collateral. On the left, there is significant disease likely close to 70% stenosis. On the right lower extremity, the profunda appears patent without significant disease. The superficial femoral artery is patent, shortly after its takeoff there is a large exophytic appearing calcific disease with multiple areas throughout of similar findings. There is occlusion of the distal superficial femoral artery and multiple collateral channels with evidence of reconstitution behind the level of the knee. On the right, there is three-vessel takeoff with visualization of the posterior tibial and anterior tibial at the ankle. The hardware does obstruct to the popliteal artery visualization. On the left, the profunda appears patent without significant disease. The superficial femoral artery appears patent with areas of moderate exophytic calcium. There is a short segment of occlusion at the distal superficial femoral artery at the level of the Akash's canal with reconstitution of the popliteal artery. Again visualization is somewhat obscured by hardware at the popliteal level however below-knee popliteal appears patent without significant disease. The anterior tibial, tibioperoneal trunk, peroneal and posterior tibial do appear patent but very diminutive at this level. The posterior tibial and peroneal appear to run to the level of the ankle. Difficult to follow the course of the anterior tibial artery.
[2024-09-03 07:02] LABS: Glucose,Whole Blood 122 mg/dL (70-110)
== END 2024-09-01 17:17 | disposition home or self-care (01) ==
LOC: CATHCVL 11:38
PROVIDERS: ATTEND Surgery
DX: I70.213 Atherosclerosis of native arteries of extremities with intermittent claudication, bilateral legs
CPT/HCPCS: 36200; 75625; 75716; 80048; 85025

== ENCOUNTER → 2024-09-02 | Outpatient (CLI) | payer MEDICARE ==
--- NOTE | 2024-09-02 17:09 | CA ---
Transthoracic Echo Report Name: Dayron Chandra Age: 74 Gender: M : 1950 Exam Date: 09/02/2024 13:24 Exam Location: [facility] Ht (in): 72 Wt (lb): 230 Ordering Physician: Thalia Koch MD Attending/Referring Phys: Thalia Koch MD Flag Signalman Diana Pichardo RDCS Procedure CPT: Indications: Z86.73 hx of stroke Cardiac Hx: Technical Quality: Fair Contrast 1: Total Dose (mL): Contrast 2: Total Dose (mL): MEASUREMENTS (Male / Female) Normal Values 2D ECHO LV Diastolic Diameter PLAX 5.2 cm 4.2 - 5.9 / 3.9 - 5.3 cm LV Systolic Diameter PLAX 3.4 cm IVS Diastolic Thickness 1.2 cm 0.6 - 1.0 / 0.6 - 0.9 cm LVPW Diastolic Thickness 1.4 cm 0.6 - 1.0 / 0.6 - 0.9 cm LV Relative Wall Thickness 0.5 RV Internal Dim ED PLAX 2.8 cm LA Systolic Diameter LX 4.0 cm 3.0 - 4.0 / 2.7 - 3.8 cm LV Diastolic Volume MOD BP 77.1 cm??? 67 - 155 / 56 - 104 cm??? LV Systolic Volume MOD BP 29.4 cm??? 22 - 58 / 19 - 49 cm??? LV Ejection Fraction MOD BP 61.8 % >= 55 % LV Cardiac Index MOD BP 1615.8 cm???/min???m??? LV Diastolic Volume MOD 4C 66.9 cm??? LV Systolic Volume MOD 4C 33.0 cm??? LV Ejection Fraction MOD 4C 50.6 % LV Cardiac Index MOD 4C 1149.3 cm???/min???m??? LV Diastolic Length 4C 8.3 cm LV Systolic Length 4C 6.8 cm LV Diastolic Volume MOD 2C 84.3 cm??? LV Systolic Volume MOD 2C 26.6 cm??? LV Ejection Fraction MOD 2C 68.4 % LV Cardiac Index MOD 2C 1955.9 cm???/min???m??? LV Diastolic Length 2C 8.8 cm LV Systolic Length 2C 6.8 cm LA Volume 69.3 cm??? 18 - 58 / 22 - 52 cm??? LA Volume Index 29.7 cm???/m??? 16 - 28 cm???/m??? M-MODE Aortic Root Diameter MM 3.9 cm LA Systolic Diameter MM 4.1 cm LA Ao Ratio MM 1.1 AV Cusp Separation MM 1.8 cm DOPPLER AV Peak Velocity 194.9 cm/s AV Peak Gradient 15.2 mmHg AV Mean Velocity 130.8 cm/s AV Mean Gradient 7.7 mmHg AV Velocity Time Integral 43.3 cm AI Peak Velocity 279.1 cm/s AI Peak Gradient 31.2 mmHg AI Pressure Half Time 1318.2 ms LVOT Peak Velocity 104.3 cm/s LVOT Peak Gradient 4.3 mmHg LVOT Velocity Time Integral 29.8 cm MV Area PHT 1.8 cm??? Mitral E Point Velocity 79.6 cm/s Mitral A Point Velocity 104.2 cm/s Mitral E to A Ratio 0.8 MV Deceleration Time 413.3 ms TR Peak Velocity 250.6 cm/s TR Peak Gradient 25.1 mmHg Right Ventricular Systolic Press 28.8 mmHg FINDINGS Left Ventricle Left ventricular ejection fraction is estimated at 55-60%. Mildly increased septal wall thickness. Normal left ventricular systolic function with no obvious regional wall motion abnormalities. Right Ventricle Normal right ventricular size and function. Right ventricular systolic pressure within normal limits. Right Atrium Normal right atrial size. Left Atrium Mildly increased left atrial volume. Mitral Valve Structurally normal mitral valve. Mild mitral regurgitation. No mitral stenosis. Aortic Valve Trileaflet aortic valve. Diffuse thickening (sclerosis) of the aortic valve cusps without reduced excursion. Trace aortic regurgitation. Tricuspid Valve Structurally normal tricuspid valve. Trace tricuspid regurgitation. No tricuspid prolapse. No tricuspid stenosis. Pulmonic Valve Structurally normal pulmonic valve. Trace pulmonic regurgitation. No pulmonic stenosis. Pericardium No pericardial or pleural effusion. Aorta Mild aortic dilatation at the level of the sinuses of valsalva (root). CONCLUSIONS Normal LV function Mild mitral regurgitation Mildly dilated aortic root No intracardiac thrombus noted on this study. Consider transesophageal echo to definitively rule out cardiac source for thromboembolic CVA Previewed by: Dr. Josafat Kerns MD (Electronically Signed) Final Date: 02 September 2024 17:08
== END | disposition home or self-care (01) ==
LOC: RADECHMAIN 13:22
PROVIDERS: ATTEND Psychiatry & Neurology Neurology
DX: I08.0 Rheumatic disorders of both mitral and aortic valves (principal); Z86.73 Personal history of transient ischemic attack (TIA), and cerebral infarction without residual deficits
CPT/HCPCS: 93306

== ENCOUNTER 2024-12-09 07:23 | Inpatient (IN) | payer MEDICARE ==
[~2024-12-09 07:23] MED LIST changes: -HEPARIN SODIUM,PORCINE (1 ML) 2,500 UNIT in SODIUM CHLORIDE 0.9% 250 ML IRRIGATION PRN; -HEPARIN SODIUM,PORCINE 10,000 UNIT in SODIUM CHLORIDE 0.9% 1,000 ML IRRIGATION PRN; +HYDROmorphone 0.5 MG/0.5 ML SYRINGE IVP PRN; +LIDOCAINE 1% (10MG/ML) FOR IV START INTRADERMA PRN
[2024-12-09 07:51] LABS: Glucose,Whole Blood 118 mg/dL (70-110)
[2024-12-09] MEDS: SODIUM CHLORIDE 0.9% 1,000 ML in EMPTY BAG 1 BAG IV ONE (07:57)
[2024-12-09 07:59] LABS: Basophils % (A) 1 %; Eosinophils # (A) 0.2 k/uL (0-0.7); Eosinophils % (A) 4 %; HCT 37.2 % (39.0-53.0); HGB 12.3 gm/dL (13.0-17.5); Lymphocytes # (A) 2.5 k/uL (1.0-4.8); Lymphocytes % (A) 36 %; MCV 88.1 fL (80.0-100.0); Mean Platelet Volume 7.8; Monocytes # (A) 0.6 k/uL (0-1.0); Monocytes % (A) 9 %; Neutrophils # (A) 3.2 k/uL (1.3-7.7); Neutrophils % (A) 47 %; Platelet Count 175 k/uL (150-450); RBC 4.22 m/uL (4.30-5.90); RDW 13.9 % (11.5-15.5); WBC 6.8 k/uL (3.8-10.6)
[2024-12-09] MEDS: IV FLUID CONTINUATION 1,000 ML IV ONE (08:00)
[2024-12-09 08:12] LABS: African American GFR (CKD) 48 (>60 ml/min/1.73 sqM); Anion Gap 9 mmol/L; Blood Urea Nitrogen 38 mg/dL (9-20); Calcium 8.6 mg/dL (8.4-10.2); Carbon Dioxide 24 mmol/L (22-30); Chloride 103 mmol/L (98-107); Glucose 114 mg/dL (74-99); Non-African American GFR(CKD) 42 (>60 ml/min/1.73 sqM); Potassium 4.4 mmol/L (3.5-5.1); Sodium 136 mmol/L (137-145)
[2024-12-09] MEDS ORDERED: MIDAZOLAM 2 MG/2 ML VIAL ONE (10:02)
[2024-12-09] MEDS ORDERED: ePHEDrine 50 MG/ML 1 ML VIAL ONE (10:02)
[2024-12-09] MEDS ORDERED: fentaNYL (PF) 50 MCG/ML 2 ML AMP ONE (10:02)
[2024-12-09] MEDS ORDERED: PROPOFOL 10 MG/ML 20 ML VIAL IV ONE (10:02)
[2024-12-09] MEDS ORDERED: SUCCINYLCHOLINE CHLORIDE 200 MG/10 ML VIAL IV ONE (10:02)
[2024-12-09] MEDS ORDERED: VASOPRESSIN 20 UNIT/ML 1 ML VIAL ONE (10:02)
[2024-12-09] MEDS ORDERED: PROTAMINE SULFATE 10 MG/ML 5 ML VIAL ONE (10:02)
[2024-12-09] MEDS ORDERED: ONDANSETRON 4 MG/2 ML VIAL ONE (10:02)
[2024-12-09] MEDS ORDERED: HEPARIN SODIUM,PORCINE 10,000 UNIT/ML 1 ML VIAL ONE (10:02)
[2024-12-09] MEDS ORDERED: DEXAMETHASONE SOD PHOSPHATE 4 MG/ML 1 ML VIAL ONE (10:02)
[2024-12-09] MEDS ORDERED: NEOSTIGMINE 1 MG/ML 10 ML VIAL ONE (10:02)
[2024-12-09] MEDS ORDERED: GLYCOPYRROLATE 0.2 MG/ML 2 ML VIAL ONE (10:02)
[2024-12-09] MEDS ORDERED: ROCURONIUM 10 MG/ML (5 ML VIAL) IV ONE (10:02)
[2024-12-09] MEDS ORDERED: PHENYLEPHRINE 10 MG/ML VIAL ONE (10:02)
[2024-12-09] MEDS: HEPARIN SODIUM,PORCINE 10,000 UNIT in SODIUM CHLORIDE 0.9% 1,000 ML IRRIGATION ONE (10:08)
[2024-12-09] MEDS: ceFAZolin 2 GM in SODIUM CHLORIDE 0.9% 500 ML 500 ML IRRIGATION ONE (10:09)
[2024-12-09] MEDS: LACTATED RINGERS 1,000 ML IV ONE (11:52)
[2024-12-09] MEDS: THROMBIN (BOVINE) 5,000 UNIT VIAL TOPICAL ONE (11:53)
--- NOTE | 2024-12-09 12:04 | P.ANPRN ---
Procedure Note - Anesthesia - Invasive Line Left Arterial Line Time Out Performed: Yes Date of Procedure: 12/09/24 Time of Procedure: 10:00 Location of Patient: PreOp Preparation: Sterile Prep Arterial Line Location: Radial Ultrasound Used: Yes Purpose - Visualization and Identification of Vasculature: Yes Image Stored and Saved: Yes Narrative: Invasive line placement per sterile protocol utilized. AttemptX1.
[2024-12-09] MEDS: SODIUM CHLORIDE 0.9% 250 ML with ceFAZolin 2,000 MG IV ONE (14:05)
--- NOTE | 2024-12-09 15:24 | P.OP ---
Date of Procedure: 12/09/24 Description of Procedure: Preoperative diagnosis: Bilateral lower extremity claudication, arterial occlusive disease bilaterally Postoperative diagnosis: Same Procedure: Left femoral endarterectomy with patch angioplasty Left iliofemoral angiogram Left common iliac percutaneous transluminal balloon angioplasty 5 x 40, balloon expandable stent 8 x 59 Selective right lower extremity angiogram third order to popliteal artery Percutaneous transluminal balloon angioplasty and stent of the right lower extremity with Zilver stent 6 x 140, 7 x 120 Surgeon: Any Benites D.O. EBL: 150 cc IV fluids: See records Urine output: Not measured Drains: None Complications: None immediately apparent Condition: Stable to recovery Operative indication and findings: Patient is a 74-year-old with significant peripheral arterial disease who presents today for femoral endarterectomy patch angioplasty and this intervention on the left with open over intervention to the right SFA and angiogram. Risks and benefits were discussed. He seems understood and was willing to proceed. Procedure in detail: The patient was taken to the operative suite and placed in supine position. Bilateral groins prepped and draped in usual sterile fashion. A preprocedure timeout was performed and all parties are in agreement. A vertical incision was made in the left groin with the scalpel. It was deepened through subcutaneous tissues with electrocautery. The encountered lymphatics were ligated and divided. The femoral sheath was opened sharply. The common femoral artery was dissected free circumferentially. The dissection was extended proximally to the level of the inguinal ligament, and distally to include the superficial femoral and profunda femoris arteries. They were encircled with vessel loops. ACTs were monitored and the patient was heparinized. Once heparinization was adequate, flow was occluded through the vessel. An 11 blade was utilized and arteriotomy is made the Cantu-Rudolph scissors was utilized to enlarge the arteriotomy. An endarterectomy was performed with an eversion endarterectomy at the profunda femoris. The endarterectomized surface was cleared of all debris. A bovine pericardial patch was utilized and anastomosis was created utilizing 6-0 Prolene. The anastomosis was flushed and flow was reinstituted. A Doppler was used and revealed multiphasic flow distal to the anastomosis. Attention was then turned towards the endovascular portion of the procedure. A multipurpose needle was used to access the center of the patch. A 6 Ukrainian sheath was then placed after Seldinger technique. An angiogram was performed showing significant occlusive disease of the common iliac artery. Catheters and wires were then used to traverse this area and an aortogram was performed. Due to the narrowing, 5 x 40 balloon angioplasty was performed of the common iliac. Catheters and wires were then used to access the right iliac system and an up and over sheath was placed. A right lower extremity angiogram was performed showing a widely patent common, external, common femoral and deep femoral artery. The superficial femoral artery had significant exophytic plaquing. Catheters and wires were used to traverse the area which was able to successfully be traversed to the level of the distal superficial femoral artery. At the level of the popliteal artery there was no ability to traverse this area to the area of reconstitution at the proximal popliteal. Due to this, the decision was made to treat the inflow segments of the superficial femoral artery with balloon and noncovered stent in order to help increase the flow through the collateral channels. After appropriate ballooning, a 6 x 140 and 7 x 120 Zilver stents were placed in the superficial femoral artery. Postprocedure image was performed showing improvement of flow through the area. The catheter and wire were then withdrawn. The sheath was withdrawn back to the level of the ipsilateral iliac artery. A repeat angiogram was performed and due to the continued area of narrowing and occlusion, a 8 x 59 balloon expandable covered stent was placed with significant improvement of flow. Catheters and wires were then removed. The sheath was removed and a [id number] suture was placed at the arteriotomy site for hemostasis. At that point, the wound was copiously irrigated with antibiotic solution. The femoral sheath was reapproximated with interrupted sutures of 3-0 Vicryl. The subcuticular tissue was reapproximated with 3-0 Vicryl. The skin was reprepped with running sutures of 4-0 Monocryl. Dressing was placed. The patient was awakened from surgery, extubated and transferred to PACU in stab le condition and tolerated the procedure well.
[2024-12-09 15:44] LABS: Glucose,Whole Blood 189 mg/dL (70-110)
[2024-12-09] MEDS: ALBUMIN HUMAN 5% 250 ML in EMPTY BAG 1 BAG IVPB STA (15:50)
[2024-12-09] MEDS: PHENYLEPHRINE 40 MG in SODIUM CHLORIDE 0.9% 250 ML IV SCH (16:38)
[2024-12-09 17:17] LABS: Glucose,Whole Blood 172 mg/dL (70-110)
[2024-12-09] MEDS: ONDANSETRON 4 MG/2 ML VIAL IVP ONE (18:10)
[2024-12-09] MEDS: LACTATED RINGERS 1,000 ML IV SCH (18:10)
[2024-12-09] MEDS: DEXAMETHASONE SOD PHOSPHATE 4 MG/ML 1 ML VIAL IV ONE (18:10)
[2024-12-09 18:35] LABS: Basophils % (A) 0 %; Eosinophils % (A) 0 %; HGB 11.5 gm/dL (13.0-17.5); Lymphocytes # (A) 0.6 k/uL (1.0-4.8); Lymphocytes % (A) 6 %; MCH 29.5 pg (25.0-35.0); MCHC 33.8 g/dL (31.0-37.0); MCV 87.3 fL (80.0-100.0); Mean Platelet Volume 7.8; Monocytes # (A) 0.3 k/uL (0-1.0); Monocytes % (A) 3 %; Neutrophils # (A) 9.7 k/uL (1.3-7.7); Neutrophils % (A) 90 %; Platelet Count 160 k/uL (150-450); RBC 3.89 m/uL (4.30-5.90); RDW 14.1 % (11.5-15.5); WBC 10.8 k/uL (3.8-10.6)
[2024-12-09] MEDS ORDERED: DEXTROSE 50% SYRINGE 50 ML IVP PRN ×2 (18:46)
--- NOTE | 2024-12-09 18:50 | P.CONS ---
History of Present Illness - Reason for Consult Consult date: 12/09/24 Medical management Requesting physician: Any Benites - Chief Complaint Leg pains - History of Present Illness Pleasant 74-year-old patient follows with Dr. Joaquin. Chronic medical conditions include some cognitive impairment, diabetes hyperlipidemia, hyper tension, osteoarthritis, obstructive sleep apnea, hypothyroid, does use a CPAP, microscopic colitis, does have a kidney lesion that is being followed outpatient,. Prior to surgery patient is experiencing severe pain and stiffness in the legs when walking from his house to the mailbox. Prior to surgery patient did undergo a nuclear stress test that was unremarkable. Patient's previously had a femoral endarterectomy with patch angioplasty in May 2023. Surgical indication was intermittent claudication bilaterally.. Was found to have bilateral occlusive disease. Patient underwent left femoral endarterectomy with patch angioplasty. Also left common iliac percutaneous transluminal balloon a ngioplasty. With stent placement. Also angioplasty of the right lower extremity. Postprocedure patient in the ICU. Denies any pain. Review of systems: GEN.: Tired EYES: None HEENT: None NECK: None RESPIRATORY: None CARDIOVASCULAR: None GASTROINTESTINAL: None GENITOURINARY: None MUSCULOSKELETAL: Joint pains] LYMPHATICS: None HEMATOLOGICAL: None PSYCHIATRY: None NEUROLOGICAL: [As above Social history: Used to work in [employer]. Retired. Lives with his . Smoked in the remote past. Physical examination: VITAL SIGNS: 90, 16, 132 x 42, 97% on 2 L GENERAL: BMI 31.1, laying flat in bed awake not in distress. EYES: Pupils equal. Conjunctiva tom l. HEENT: External appearance of nose and ears normal, oral cavity grossly normal. NECK: JVD not raised; masses not palpable. HEART: First and second heart sounds are normal; no edema. LUNGS: Respiratory rate normal; decreased breath sound. ABDOMEN: Soft, nontender, liver spleen not palpable, no masses palpable. PSYCH: Alert and oriented x3; mood and affect tom l. MUSCULOSKELETAL:No Clubbing/cyanosis;muscles-grossly intact. OA NEUROLOGICAL: Cranial nerves grossly intact; no facial asymmetry, power and sensation grossly intact. LYMPHATICS: No lymph nodes palpable in the axilla and neck INVESTIGATIONS, reviewed in the clinical context: December 09, 2024: White count 10.8 hemoglobin 11.5 platelets 160 sodium 136 potassium 4.4 BUN 38 creatinine 1.59 Previous labs: Creatinine 1.32 and May 2023 Assessment plan: -underwent left femoral endarterectomy with patch angioplasty. Also left common iliac percutaneous transluminal balloon angioplasty. With stent placement. Also angioplasty of the right lower extremity. This was done for bilateral claudication and occlusive disease in lower extremity. Aspirin. Plavix. Will add Lipitor 40 mg nightly -Peripheral arterial disease with prior intervention. Aspirin. Plavix. Lipitor. -Diabetes mellitus type 2 on oral hypoglycemic Resume Yuki Camaraance. Accu-Cheks with sliding scale insulin. -BPH Terazosin -Hypothyroid Synthroid 50 mcg a day -Chronic kidney disease stage III likely from diabetic nephropathy and hypertensive nephrosclerosis Follow renal function closely. Check in the morning. -Normocytic anemia likely secondary to chronic kidney disease Follow hemoglobin -Cognitive impairment Aricept 5 mg nightly -Essential hypertension Patient is currently on phenylephrine . Blood pressure being followed closely -Obstructive sleep apnea Uses CPAP -Chronic microscopic colitis Care was discussed with patient. Questions answered. Should follow-up with Dr. Joaquin upon discharge. Patient currently on clear liquid diet. Thank you Dr. Benites . Past Medical History Past Medical History: CVA/TIA, Dementia, Diabetes Mellitus, Hyperlipidemia, Hypertension, Memory Impairment, Osteoarthritis (OA), Renal Disease, Sleep Apnea/CPAP/BIPAP, Thyroid Disorder, Vascular Disorder Additional Past Medical History / Comment(s): , USES C-PAP MACHINE, microscopic colitis, sees kidney for spot on kidney being watched, severe leg pain/cramps, per MRI showed small stroke-unsure when happened, rheumatic fever as a child, History of Any Multi-Drug Resistant Organisms: None Reported Past Surgical History: Joint Replacement, Orthopedic Surgery Additional Past Surgical History / Comment(s): francine carpal tunnel, Cyst on tailbone, francine knee replacements, aortogram Past Anesthesia/Blood Transfusion Reactions: No Reported Reaction Smoking Status: Former smoker - Past Family History Sister(s) Family Medical History: Cancer Additional Family Medical History / Comment(s): breast Medications and Allergies Home Medications Medication Instructions Recorded Confirmed Type Aspirin [Adult Low Dose Aspirin EC] 81 mg PO DAILY 04/06/21 12/09/24 History Benazepril HCl [Lotensin] 20 mg PO DAILY 04/06/21 12/09/24 History glipiZIDE [Glucotrol] 10 mg PO AC-BID 04/06/21 12/09/24 History Atorvastatin Calcium 10 mg PO HS 02/17/23 12/09/24 History Levothyroxine Sodium [Synthroid] 50 mcg PO 1500 02/17/23 12/09/24 History Terazosin HCl 5 mg PO HS 02/17/23 12/09/24 History Terazosin HCl 10 mg PO DAILY 06/20/23 12/09/24 History Donepezil HCl [Aricept ODT] 5 mg PO HS 08/27/24 12/09/24 History Empagliflozin [Jardiance] 10 mg PO DAILY 08/27/24 12/09/24 History sitaGLIPtin [Januvia] 100 mg PO DAILY 08/27/24 12/09/24 History Multivitamins, Thera [Multivitamin 1 tab PO DAILY 11/10/24 12/09/24 History (formulary)] Allergies Allergy/AdvReac Type Severity Reaction Status Date / Time No Known Allergies Allergy Verified 12/09/24 07:46 Physical Exam Vitals: Vital Signs Temp Pulse Pulse Resp BP BP Pulse Ox 12/09/24 16:45 90 16 116/57 132/42 97 12/09/24 16:30 87 17 113/54 129/40 97 12/09/24 16:15 92 14 102/53 93 L 12/09/24 16:00 96 15 99/50 95 12/09/24 15:38 85 17 111/40 98 12/09/24 15:23 80 15 138/63 99 12/09/24 15:08 96.9 F L 73 14 145/56 99 12/09/24 07:47 97.9 F 77 16 150/65 95 Intake and Output 12/09/24 12/09/24 12/09/24 06:59 14:59 22:59 Intake Total 1052 200 Output Total 1150 1000 Balance -98 -800 Intake: IV 1052 200 Output: Urine 1000 1000 Estimated Blood Loss 150 Other: Weight 107 kg Results CBC & Chem 7: 12/09/24 17:49 12/09/24 07:39 Labs: Abnormal Lab Results - Last 24 Hours (Table) 12/09/24 12/09/24 12/09/24 Range/Units 07:39 07:39 07:49 WBC (3.8-10.6) k/uL RBC 4.22 L (4.30-5.90) m/uL Hgb 12.3 L (13.0-17.5) gm/dL Hct 37.2 L (39.0-53.0) % Neutrophils # (1.3-7.7) k/uL Lymphocytes # (1.0-4.8) k/uL Sodium 136 L (137-145) mmol/L BUN 38 H (9-20) mg/dL Creatinine 1.59 H (0.66-1.25) mg/dL Glucose 114 H (74-99) mg/dL POC Glucose (mg/dL) 118 H (70-110) mg/dL 12/09/24 12/09/24 12/09/24 Range/Units 15:42 17:15 17:49 WBC 10.8 H (3.8-10.6) k/uL RBC 3.89 L (4.30-5.90) m/uL Hgb 11.5 L (13.0-17.5) gm/dL Hct 34.0 L (39.0-53.0) % Neutrophils # 9.7 H (1.3-7.7) k/uL Lymphocytes # 0.6 L (1.0-4.8) k/uL Sodium (137-145) mmol/L BUN (9-20) mg/dL Creatinine (0.66-1.25) mg/dL Glucose (74-99) mg/dL POC Glucose (mg/dL) 189 H 172 H (70-110) mg/dL
[2024-12-09 19:03] LABS: African American GFR (CKD) 57 (>60 ml/min/1.73 sqM); Anion Gap 11 mmol/L; Blood Urea Nitrogen 34 mg/dL (9-20); Calcium 8.9 mg/dL (8.4-10.2); Carbon Dioxide 18 mmol/L (22-30); Chloride 106 mmol/L (98-107); Glucose 166 mg/dL (74-99); Non-African American GFR(CKD) 49 (>60 ml/min/1.73 sqM); Potassium 4.9 mmol/L (3.5-5.1); Sodium 135 mmol/L (137-145)
[2024-12-09 19:49] LABS: Glucose,Whole Blood 166 mg/dL (70-110)
[2024-12-09] MEDS: HYDROcodone/APAP 5-325MG 1 EACH TAB PO PRN (19:55)
[2024-12-09] MEDS: ATORVASTATIN 40 MG TAB PO SCH (19:56)
[2024-12-09] MEDS: DOXAZOSIN 4 MG TAB PO SCH (19:56)
[2024-12-09] MEDS: DONEPEZIL 5 MG TAB PO SCH (19:56)
[2024-12-09] MEDS: INSULIN ASPART (NovoLOG) 100 UNIT/ML VIAL SQ SCH (19:57)
--- NOTE | 2024-12-09 20:54 | IR ---
EXAMINATION TYPE: IR stent intravas non coronary DATE OF EXAM: 12/09/2024 FLUOROSCOPY leg pain, 35.5m/138DAP, rt gr suture 527 images submitted. [facility], , 12/09/2024 8:52 PM
--- NOTE | 2024-12-10 02:04 | P.CNPUL ---
History of Present Illness Consult date: 12/10/24 Requesting physician: Any Benites Reason for consult: other (ICU management) Chief complaint: elective surgery History of present illness: Patient is a 74-year-old male with past medical history significant for hypertension, hyperlipidemia, diabetes mellitus type 2, CKD, former tobacco smok er, hypothyroidism, rheumatic fever, WIL, and severe PAD. Over the last 2 years or so, he has been suffering from lower extremity pain and symptoms of intermittent claudication of the lower extremities with walking. He follows with vascular surgery on outpatient basis. Surgical history significant for previous right femoral endarterectomy May,. Patient brought in yesterday for an elective left femoral endarterectomy with patch angioplasty, left iliofemoral angiogram, left common iliac percutaneous transluminal balloon angioplasty with stent, and percutaneous transluminal balloon angioplasty and stent of the right lower extremity. Following the procedure, patient was transiently hypotensive and briefly started on Lay[place]-Synephrine. This is currently off. Patient is currently in the intensive care unit, resting comfortably on room air. He is alert and in no acute distress. Neurovascular status of bilateral lower extremities is intact. Left groin wound VAC with no output in the chamber. [place]-Synephrine has been off for at least 5 hours. Blood pressure is actually slightly hypertensive at this point. Postoperative labs include a CBC with a WBC count of 10.8, hemoglobin 11.5, hematocrit 34, platelets 160. Preoperative hemoglobin was 12.3. BMP includes a sodium 135, potassium 4.9, chloride 106, serum bicarb 18, BUN 34, creatinine 1.39, glucose 166. Current most recent vital signs include a temperature of 97.8 F, heart rate 88 bpm, blood pressure 168/56 mmHg, nontachypneic, SpO2 is 99% on room air. Elderly Review of Systems Constitutional: Reports chronic pain, Denies chills, Denies fatigue, Denies fever, Denies poor appetite, Denies weight gain, Denies weight loss Cardiovascular: Denies chest pain, Denies leg edema, Denies orthopnea, Denies palpitations, Denies paroxysmal nocturnal dyspnea, Denies shortness of breath, Denies syncope Respiratory: Denies congestion, Denies cough, Denies dyspnea, Denies home oxygen, Denies respiratory infections, Denies wheezing Gastrointestinal: Denies abdominal pain, Denies change in bowel habits, Denies diarrhea, Denies nausea, Denies vomiting Genitourinary: Denies dysuria Musculoskeletal: Denies leg numbness/tingling, Denies limitation of motion, Den ies shooting leg pain Integumentary: Denies rash, Denies sores Neurological: Denies numbness, Denies paralysis, Denies paresthesias, Denies seizures, Denies syncope Psychiatric: Denies anxiety, Denies depression Past Medical History Past Medical History: CVA/TIA, Dementia, Diabetes Mellitus, Hyperlipidemia, Hypertension, Memory Impairment, Osteoarthritis (OA), Renal Disease, Sleep A pnea/CPAP/BIPAP, Thyroid Disorder, Vascular Disorder Additional Past Medical History / Comment(s): , USES C-PAP MACHINE, microscopic colitis, sees kidney for spot on kidney being watched, severe leg pain/cramps, per MRI showed small stroke-unsure when happened, rheumatic fever as a child, History of Any Multi-Drug Resistant Organisms: None Reported Past Surgical History: Joint Replacement, Orthopedic Surgery Additional Past Surgical History / Comment(s): francine carpal tunnel, Cyst on tailbone, francine knee replacements, aortogram Past Anesthesia/Blood Transfusion Reactions: No Reported Reaction Smoking Status: Former smoker - Past Family History Sister(s) Family Medical History: Cancer Additional Family Medical History / Comment(s): breast Medications and Allergies Home Medications Medication Instructions Recorded Confirmed Type Aspirin [Adult Low Dose Aspirin EC] 81 mg PO DAILY 04/06/21 12/09/24 History Benazepril HCl [Lotensin] 20 mg PO DAILY 04/06/21 12/09/24 History glipiZIDE [Glucotrol] 10 mg PO AC-BID 04/06/21 12/09/24 History Atorvastatin Calcium 10 mg PO HS 02/17/23 12/09/24 History Levothyroxine Sodium [Synthroid] 50 mcg PO 1500 02/17/23 12/09/24 History Terazosin HCl 5 mg PO HS 02/17/23 12/09/24 History Terazosin HCl 10 mg PO DAILY 06/20/23 12/09/24 History Donepezil HCl [Aricept ODT] 5 mg PO HS 08/27/24 12/09/24 History Empagliflozin [Jardiance] 10 mg PO DAILY 08/27/24 12/09/24 History sitaGLIPtin [Januvia] 100 mg PO DAILY 08/27/24 12/09/24 History Multivitamins, Thera [Multivitamin 1 tab PO DAILY 11/10/24 12/09/24 History (formulary)] Allergies Allergy/AdvReac Type Severity Reaction Status Date / Time No Known Allergies Allergy Verified 12/09/24 07:46 Physical Exam Vitals: Vital Signs Temp Pulse Pulse Pulse Resp BP BP 12/09/24 20:15 97.8 F 89 20 12/09/24 20:00 84 15 12/09/24 19:45 98 16 12/09/24 19:30 87 15 12/09/24 19:15 82 14 12/09/24 19:00 84 14 12/09/24 18:00 81 12 12/09/24 17:25 12 12/09/24 16:45 90 16 116/57 132/42 12/09/24 16:30 87 17 113/54 129/40 12/09/24 16:15 92 14 102/53 12/09/24 16:00 96 15 99/50 12/09/24 15:38 85 17 111/40 12/09/24 15:23 80 15 138/63 12/09/24 15:08 96.9 F L 73 14 145/56 12/09/24 07:47 97.9 F 77 16 150/65 Pulse Ox 12/09/24 20:15 99 12/09/24 20:00 12/09/24 19:45 12/09/24 19:30 12/09/24 19:15 12/09/24 19:00 12/09/24 18:00 94 L 12/09/24 17:25 12/09/24 16:45 97 12/09/24 16:30 97 12/09/24 16:15 93 L 12/09/24 16:00 95 12/09/24 15:38 98 12/09/24 15:23 99 12/09/24 15:08 99 12/09/24 07:47 95 Intake and Output 12/09/24 12/09/24 12/10/24 14:59 22:59 06:59 Intake Total 1052 341.412 Output Total 1150 1350 Balance -98 -1008.588 Intake: IV 1052 270 Lactated Ringers 1,000 ml 20 @ 20 mls/hr IV .Q24H NIKKI Rx#:[id number] ceFAZolin 2 gm In Sodium 50 Chloride 0.9% 50 ml @ 100 mls/hr IVPB ONCE ONE Rx# :[id number] Intake, IV Titration 71.412 Amount Phenylephrine 40 mg In 71.412 Sodium Chloride 0.9% 250 ml @ 0.5 MCG/KG/MIN 20. 384 mls/hr IV .[id number] [facility] Rx#:[id number] Output: Urine 1000 1350 Estimated Blood Loss 150 Other: Voiding Method Self-Catheterization # Voids 0 Weight 107 kg ABP, PAP, CO, CI - Last 8 Hours Arterial Blood Pressure 168/56 Arterial Blood Pressure 169/57 Arterial Blood Pressure 127/61 Arterial Blood Pressure 149/49 Arterial Blood Pressure 142/47 Arterial Blood Pressure 142/47 Arterial Blood Pressure 144/47 GENERAL EXAM: Alert, 74-year-old white male, comfortable in no apparent distress. HEAD: Normocephalic and atraumatic EYES: Normal reaction of pupils, equal size. NOSE: Clear with pink turbinates. THROAT: No erythema or exudates. NECK: No masses, no JVD. CHEST: No chest wall deformity. LUNGS: Equal air entry with no crackles, wheeze, rhonchi or dullness. On room air. No conversational dyspnea or accessory muscle use.. CVS: S1 and S2 normal with no audible murmur, regular rhythm. No extra heart sounds ABDOMEN: No hepatosplenomegaly, active bowel sounds, no guarding or rigidity. SPINE: No scoliosis or deformity SKIN: No rashes CENTRAL NERVOUS SYSTEM: No focal deficits, tone is normal in all 4 extremities. EXTREMITIES: There is no peripheral edema, clubbing, or cyanosis. Left groin wound VAC with no output in drainage chamber. Bilateral lower extremity pulses are weak but palpable including dorsalis pedis and posterior tibial, feet are warm. Results - Laboratory Findings CBC and BMP: 12/10/24 02:46 12/10/24 02:46 Abnormal lab findings: Abnormal Labs 12/09/24 12/09/24 12/09/24 07:39 07:39 07:49 WBC RBC 4.22 L Hgb 12.3 L Hct 37.2 L Neutrophils # Lymphocytes # Sodium 136 L Carbon Dioxide BUN 38 H Creatinine 1.59 H Glucose 114 H POC Glucose (mg/dL) 118 H 01/08/2512/09/24 12/09/24 15:42 17:15 17:49 WBC 10.8 H RBC 3.89 L Hgb 11.5 L Hct 34.0 L Neutrophils # 9.7 H Lymphocytes # 0.6 L Sodium Carbon Dioxide BUN Creatinine Glucose POC Glucose (mg/dL) 189 H 172 H 12/09/24 12/09/24 17:49 19:47 WBC RBC Hgb Hct Neutrophils # Lymphocytes # Sodium 135 L Carbon Dioxide 18 L BUN 34 H Creatinine 1.39 H Glucose 166 H POC Glucose (mg/dL) 166 H Assessment and Plan Assessment: Status postoperative day #1 following elective left femoral endarterectomy with patch angioplasty, left iliofemoral angiogram, left common iliac percutaneous transluminal balloon angioplasty with stent, and percutaneous transluminal balloon angioplasty and stent of the right lower extremity. Brief episode of hypotension, noted postoperatively, transiently placed on [place]- Synephrine which is off. Patient is currently hypertensive Acute blood loss anemia, hemoglobin down to 11.5 g/dL, expected outcome of procedure History of severe peripheral arterial disease and intermittent claudication, with history of right femoral endarterectomy May,. Hypertension History of hyperlipidemia Diabetes mellitus type 2 Chronic kidney disease stage III Former tobacco smoker of over 20 years ago History of hypothyroidism History of rheumatic fever as a child Obstructive sleep apnea with home CPAP Memory disorder, takes Aricept on outpatient basis Plan: Patient previously admitted to the intensive care unit following his procedure for hypotension Patient blood pressure is since improved, and Lay[place]-Synephrine has been off more than 5 hours, blood pressure is now improved Continued on dual antiplatelet medication in the form of Plavix and aspirin Monitor neurovascular status of lower extremities per protocol We will continue to monitor patient's blood pressure in the intensive care unit at least overnight. I have personally seen and examined the patient, performed the documentation and the assessment and plan as written. Number of minutes spent on the visit:20 This is a joint evaluation that was done along with the nurse practitioner. This evaluation was done more than 30 minutes. The patient got transferred to the intensive care unit due to hypotension requiring following a vascular lesly selma/intervention. The patient underwent a left femoral endarterectomy with patch angioplasty by vascular surgery and the patient also underwent a left common iliac percutaneous transluminal balloon angioplasty with stent insertion. Postop, the patient had a brief hypotension, and started on Layton-Synephrine at the recovery room. By the time, the patient arrived to the intensive care unit, the patient was normotensive and the pressors were discontinued. The patient remains normotensive. Hemodynamically stable. Hemoglobin has also remained stable and the most recent hemoglobin is at 11.5. Renal function remains stable as the patient has chronic stage III kidney disease. Overall hemodynamically stable, on 2 L of oxygen by nasal cannula. No respiratory distress. Other comorbidities include chronic stage III kidney disease, peripheral vascular disease and the patient has undergone a previous right femoral endarterectomy back in May 2023, hypertension, hyperlipidemia, diabetes mellitus type 2, and hypothyroidism. The patient has a body mass index of 31.8 and the patient has obstructive sleep apnea utilizes a CPAP machine at home. He does have a component of dementia and memory deficits maintained on Aricept. The left lower extremity is warm and the pulses are adequate at this point.IV fluids are currently at KVO. Remains on aspirin and Plavix. Cardiac rhythm is sinus. Urine output is adequate. Time with Patient: Greater than 30
[2024-12-10 04:03] LABS: African American GFR (CKD) 55 (>60 ml/min/1.73 sqM); Anion Gap 8 mmol/L; Blood Urea Nitrogen 31 mg/dL (9-20); Calcium 8.9 mg/dL (8.4-10.2); Carbon Dioxide 21 mmol/L (22-30); Chloride 106 mmol/L (98-107); Glucose 136 mg/dL (74-99); Non-African American GFR(CKD) 48 (>60 ml/min/1.73 sqM); Sodium 135 mmol/L (137-145)
[2024-12-10 04:22] LABS: Basophils % (A) 0 %; Eosinophils % (A) 0 %; HCT 32.3 % (39.0-53.0); Lymphocytes # (A) 0.7 k/uL (1.0-4.8); Lymphocytes % (A) 8 %; MCHC 34.1 g/dL (31.0-37.0); MCV 87.7 fL (80.0-100.0); Mean Platelet Volume 8.4; Monocytes # (A) 0.5 k/uL (0-1.0); Monocytes % (A) 6 %; Neutrophils # (A) 7.9 k/uL (1.3-7.7); Neutrophils % (A) 86 %; Platelet Count 158 k/uL (150-450); RBC 3.68 m/uL (4.30-5.90); RDW 13.8 % (11.5-15.5); WBC 9.2 k/uL (3.8-10.6)
[2024-12-10 06:17] LABS: Glucose,Whole Blood 124 mg/dL (70-110)
[2024-12-10] MEDS: DAPAGLIFLOZIN PROPANEDIOL 5 MG TABLET PO SCH (08:18)
[2024-12-10] MEDS: ASPIRIN 81 MG PO SCH (08:19)
[2024-12-10] MEDS: DOXAZOSIN 4 MG TAB PO SCH (08:19)
[2024-12-10] MEDS: CLOPIDOGREL 75 MG TAB PO SCH (08:19)
[2024-12-10] MEDS: LINAGLIPTIN 5 MG TABLET PO SCH (08:20)
[2024-12-10] MEDS: MULTIVITAMINS, THERA 1 EACH TAB PO SCH (08:23)
--- NOTE | 2024-12-10 09:41 | P.DS ---
Providers Date of admission: 12/09/24 07:23 Attending physician: Any Benites DO Consults: 12/09/24 15:25 Consult Physician Routine Consulting Provider: Jaron Fry Consult Reason/Comments: med mgmnt Do you want consulting provider notified?: Yes 12/09/24 19:11 Consult Physician Routine Consulting Provider: Catherine Vieira Consult Reason/Comments: ICU management Do you want consulting provider notified?: Already Contacted Primary care physician: [facility] Course: 74-year-old male with bilateral lower extremity claudication and arterial occlusive disease bilaterally was scheduled for elective left femoral endarterectomy with patch angioplasty. He is postop day #1 for left femoral endarterectomy with patch angioplasty, left common iliac percutaneous transluminal balloon angioplasty and balloon expandable stent, and percutaneous transluminal balloon angioplasty and stent of the right lower extremity. He states his legs feel achy, his back hurts because he has been laying flat throughout the night. He was admitted to the ICU because he initially was on neosend upon postop which was discontinued early evening yesterday. He denies any shortness of breath or chest pain, no fevers, chills abdominal pain nausea or vomiting. States he does not know if his l leg pain is improved because he has not been up and walking yet. He has Benites catheter with good urine output. Tolerating heart healthy diet. Arterial line to be discontinued, Benites catheter to be discontinued patient is to get up and ambulate. Anticipate discharge this afternoon. Exam General appearance: The patient is alert, oriented, appears in no acute distress. HET: Head is normocephalic and atraumatic. Pupils are equal and reactive. Neck: Supple. Heart: Regular. Lungs: Equal expansion, normal respiratory effort. Abdomen: Soft, nontender, nondistended. Extremities: Normal skin color and turgor. Bilateral lower extremities warm to the touch, good capillary refill. Sensorimotor intact. Left groin with Prevena wound VAC in place Neurological: No focal deficits. Strength and sensation are grossly intact. Assessment 1. Postop day #1 left femoral endarterectomy with patch angioplasty, left common iliac percutaneous transluminal balloon angioplasty and balloon expandable stent, and percutaneous transluminal balloon angioplasty and stent of the right lower extremity. 2. Bilateral lower extremity claudication and arterial occlusive disease 3. Postop hypotension, resolved 4. Diabetes mellitus 5. Chronic kidney disease 6. Former tobacco smoker 7. History of hypertension and hyperlipidemia Plan Discontinue Benites catheter. Discontinue arterial line. Encourage ambulation. Keep Prevena VAC in place for 6 more days. Discharge instructions reviewed with patient. Plan for discharge later this afternoon as long as patient is able to void, pain is improved with ambulation and no other acute changes. Will follow- up with Dr. Benites in 2 weeks. The impression and plan of care has been dictated as directed. I performed a history and examination of this patient, discussed the same with the dictator. I agree with the dictator's note ,documented as a scribe. Any additional findings or plans will be noted. Procedures: Procedure: Left femoral endarterectomy with patch angioplasty Left iliofemoral angiogram Left common iliac percutaneous transluminal balloon angioplasty 5 x 40, balloon expandable stent 8 x 59 Selective right lower extremity angiogram third order to popliteal artery Percutaneous transluminal balloon angioplasty and stent of the right lower extremity with Zilver stent 6 x 140, 7 x 120 Patient Condition at Discharge: Stable Plan - Discharge Summary Discharge Rx Participant: No New Discharge Prescriptions: No Action Aspirin [Adult Low Dose Aspirin EC] 81 mg PO DAILY Atorvastatin Calcium 10 mg PO HS Terazosin HCl 5 mg PO HS Donepezil HCl [Aricept ODT] 5 mg PO HS Benazepril HCl [Lotensin] 20 mg PO DAILY glipiZIDE [Glucotrol] 10 mg PO AC-BID Levothyroxine Sodium [Synthroid] 50 mcg PO 1500 Terazosin HCl 10 mg PO DAILY sitaGLIPtin [Januvia] 100 mg PO DAILY Empagliflozin [Jardiance] 10 mg PO DAILY Multivitamins, Thera [Multivitamin (formulary)] 1 tab PO DAILY Discharge Medication List Aspirin [Adult Low Dose Aspirin EC] 81 mg PO DAILY 04/06/21 [History] Benazepril HCl [Lotensin] 20 mg PO DAILY 04/06/21 [History] glipiZIDE [Glucotrol] 10 mg PO AC-BID 04/06/21 [History] Atorvastatin Calcium 10 mg PO HS 02/17/23 [History] Levothyroxine Sodium [Synthroid] 50 mcg PO 1500 02/17/23 [History] Terazosin HCl 5 mg PO HS 02/17/23 [History] Terazosin HCl 10 mg PO DAILY 06/20/23 [History] Donepezil HCl [Aricept ODT] 5 mg PO HS 08/27/24 [History] Empagliflozin [Jardiance] 10 mg PO DAILY 08/27/24 [History] sitaGLIPtin [Januvia] 100 mg PO DAILY 08/27/24 [History] Multivitamins, Thera [Multivitamin (formulary)] 1 tab PO DAILY 11/10/24 [History]
[2024-12-10 10:44] VITALS: RESP 16
[2024-12-10 11:16] LABS: Glucose,Whole Blood 152 mg/dL (70-110)
[2024-12-10 12:02] VITALS: BP 146/62; PULSE 85; TEMP 98.5
--- NOTE | 2024-12-10 12:58 | P.PN ---
Progress Note - Text Progress Note Date: 12/10/24 - Chief Complaint Leg pains - History of Present Illness Pleasant 74-year-old patient follows with Dr. Joaquin. Chronic medical conditions include some cognitive impairment, diabetes hyperlipidemia, hypertension, osteoarthritis, obstructive sleep apnea, hypothyroid, does use a CPAP, microscopic colitis, does have a kidney lesion that is being followed outpatient,. Prior to surgery patient is experiencing severe pain and stiffness in the legs when walking from his house to the mailbox. Prior to surgery patient did undergo a nuclear stress test that was unremarkable. Patient's previously had a femoral endarterectomy with patch angioplasty in May 2023. Surgical indication was intermittent claudication bilaterally.. Was found to have bilateral occlusive disease. Patient underwent left femoral endarterectomy with patch a ngioplasty. Also left common iliac percutaneous transluminal balloon angioplasty. With stent placement. Also angioplasty of the right lower extremity. Postprocedure patient in the ICU. Denies any pain. December 10: Up in a chair. Doing much better. Did ambulate. Did tolerate a diet. I spoke to Dr. Benites. Okay to resume Xarelto 2.5 twice daily for PAD. Patient is also on Lipitor Plavix and aspirin. Follow-up with Dr. Joaquin. Only slight discomfort in the groin. Social history: Used to work in [employer]. Retired. Lives with his . Smoked in the remote past. Physical examination: VITAL SIGNS: 98.5, 85, 16, 146 x 62, 94% room air GENERAL: BMI 31.1, s sitting up in a chair, comfortable EYES: Pupils equal. Conjunctiva tom l. HEENT: External appearance of nose and ears normal, oral cavity grossly normal. NECK: JVD not raised; masses not palpable. HEART: First and second heart sounds are normal; no edema. LUNGS: Respiratory rate normal; decreased breath sound. ABDOMEN: Soft, nontender, liver spleen not palpable, no masses palpable. PSYCH: Alert and oriented x3; mood and affect tom l. MUSCULOSKELETAL:No Clubbing/cyanosis;muscles-grossly intact. OA INVESTIGATIONS, reviewed in the clinical context: December 10: White count 9.2 hemoglobin 11 platelets 158 sodium 135 potassium 5 BUN 31 creatinine 1.42 December 09, 2024: White count 10.8 hemoglobin 11.5 platelets 160 sodium 136 potassium 4.4 BUN 38 creatinine 1.59 Previous labs: Creatinine 1.32 and May 2023 Assessment plan: -underwent left femoral endarterectomy with patch angioplasty. Also left common iliac percutaneous transluminal balloon angioplasty. With stent placement. Also angioplasty of the right lower extremity. This was done for bilateral claudication and occlusive disease in lower extremity. Aspirin. Plavix. Will add Lipitor 40 mg nightly Xarelto 2.5 p.o. twice daily added for PAD-discussed with Dr. Benites -Peripheral arterial disease with prior intervention. Aspirin. Plavix. Lipitor. Xarelto 2.5 twice daily. -Diabetes mellitus type 2 on oral hypoglycemic Januvia, Jardiance. Accu-Cheks with sliding scale insulin. -BPH Terazosin -Hypothyroid Synthroid 50 mcg a day -Chronic kidney disease stage III likely from diabetic nephropathy and hypertensive nephrosclerosis Follow renal function outpatient -Normocytic anemia likely secondary to chronic kidney disease Follow hemoglobin -Mild cognitive impairment Aricept 5 mg nightly -Essential hypertension Lotensin. -Obstructive sleep apnea Uses CPAP -Chronic microscopic colitis Discussed with patient. Xarelto added. Follow-up with his PCP. Thank you Dr. Benites . Past Medical History Past Medical History: CVA/TIA, Dementia, Diabetes Mellitus, Hyperlipidemia, Hypertension, Memory Impairment, Osteoarthritis (OA), Renal Disease, Sleep Apnea/CPAP/BIPAP, Thyroid Disorder, Vascular Disorder Additional Past Medical History / Comment(s): , USES C-PAP MACHINE, microscopic colitis, sees kidney for spot on kidney being watched, severe leg pain/cramps, per MRI showed small stroke-unsure when happened, rheumatic fever as a child, History of Any Multi-Drug Resistant Organisms: None Reported Past Surgical History: Joint Replacement, Orthopedic Surgery Additional Past Surgical History / Comment(s): francine carpal tunnel, Cyst on tailbone, francine knee replacements, aortogram Past Anesthesia/Blood Transfusion Reactions: No Reported Reaction Smoking Status: Former smoker
[2024-12-10] MEDS ORDERED: LEVOTHYROXINE 50 MCG TAB PO SCH (15:00)
--- NOTE | 2024-12-13 13:03 | CDI ---
Documentation Clarification Form Date: 12/13/2024 12:47:12 PM From: Farhana Orozco Phone: Admit Date: 12/09/2024 07:23:00 AM Patient Name: Dayron Chandra Visit Number: [id number] Discharge Date: 12/10/2024 04:25:00 PM ATTENTION: The Clinical Documentation Specialists (CDI) and [facility] Coding Staff appreciate your assistance in clarifying documentation. Please respond to the clarification below the line at the bottom and electronically sign. The CDI & [facility] Coding staff will review the response and follow-up if needed. Please note: Queries are made part of the Legal Health Record. If you have any questions, please contact the author of this message via ITS. Doctor/Provider: Any Benites Postop hypotension is documented per DC Summary. Additional clarification is requested. Patients Admitting Diagnosis: BLEclaudication,arterial occlusive disease Post-Operative Diagnosis: BLEclaudication,arterial occlusive disease Procedure performed: Left femoral endarterectomywith patchangioplasty. Left iliofemoral angiogram. Left common iliac percutaneous transluminalballoonangioplasty5 x 40,balloon expandablestent8 x 59. Selective RLE angiogram third order to popliteal artery. Percutaneous transluminalballoonangioplastyandstentof the RLE with Zilverstent6 x 140, 7 x 120 History/Risk Factors: 74yo M, BLE claudicationandarterial occlusive disease, DMII, CKDIII, HTN, HLD, formersmoker Clinical Indicators: 12/09 16:45 116/27 132/42 12/09 16:30 113/54 129/40 12/09 16:15 102/53 12/09 16:00 99/50 Treatment: Patient previously admitted to the intensive care unit following his procedure forhypotension; BPis since improved, and Layton-Synephrine has been off more than 5 hours, BPis now improved. Continued on dual antiplatelet medication in the form of Plavix and aspirin. Monitor neurovascular status of lower extremities per protocol. We will continue to monitor patient's bloodpressurein the ICU at least overnight. Please clarify if Postop hypotension is a complication of the surgical procedure? [ ] Yes [x ] No [ ] Other, please specify [ ] Unable to determine (Template Last Revised: January 2021) MTDD
== END 2024-12-10 16:25 | disposition home or self-care (01) | DRG 271 ==
LOC: 2ORMAIN 07:23 → 2SICU 16:56
PROVIDERS: ADMIT Family Medicine; ATTEND Surgery
PROC: 04CL3ZZ Extirpation of Matter from Left Femoral Artery, Percutaneous Approach (ICD-10-PCS; principal; 2024-12-09 09:30)
PROC: 047D3DZ Dilation of Left Common Iliac Artery with Intraluminal Device, Percutaneous Approach (ICD-10-PCS; 2024-12-09 09:30)
PROC: 047M3EZ Dilation of Right Popliteal Artery with Two Intraluminal Devices, Percutaneous Approach (ICD-10-PCS; 2024-12-09 09:30)
PROC: 3E033XZ Introduction of Vasopressor into Peripheral Vein, Percutaneous Approach (ICD-10-PCS; 2024-12-09 09:30)
DX: E11.51 Type 2 diabetes mellitus with diabetic peripheral angiopathy without gangrene (principal); D62 Acute posthemorrhagic anemia; D63.1 Anemia in chronic kidney disease; I70.213 Atherosclerosis of native arteries of extremities with intermittent claudication, bilateral legs; E11.22 Type 2 diabetes mellitus with diabetic chronic kidney disease; F03.90 Unspecified dementia, unspecified severity, without behavioral disturbance, psychotic disturbance, mood disturbance, and anxiety; N18.30 Chronic kidney disease, stage 3 unspecified; I12.9 Hypertensive chronic kidney disease with stage 1 through stage 4 chronic kidney disease, or unspecified chronic kidney disease; E03.9 Hypothyroidism, unspecified; E78.5 Hyperlipidemia, unspecified; N40.0 Benign prostatic hyperplasia without lower urinary tract symptoms; G47.33 Obstructive sleep apnea (adult) (pediatric); I95.89 Other hypotension; K52.89 Other specified noninfective gastroenteritis and colitis; Z96.653 Presence of artificial knee joint, bilateral; Z86.19 Personal history of other infectious and parasitic diseases; Z86.73 Personal history of transient ischemic attack (TIA), and cerebral infarction without residual deficits; Z79.890 Hormone replacement therapy; Z87.891 Personal history of nicotine dependence; Z79.84 Long term (current) use of oral hypoglycemic drugs; Z79.82 Long term (current) use of aspirin
CPT/HCPCS: 35371; 37221; 37226; 75710; 80048; 83036; 85025; 86850; 86900; 86901; 88304; 88305; 88311

== ENCOUNTER → 2025-06-20 | Outpatient (CLI) | payer MEDICARE ==
--- NOTE | 2025-06-20 15:46 | MR ---
EXAMINATION TYPE: MR lumbar spine wo/w con DATE OF EXAM: 06/20/2025 3:36 PM COMPARISON: None. CLINICAL INDICATION: Male, 75 years old with history of M54.50 LOW BACK PAIN M54.16 RADICULOPATHY, M4 8.061, Low back pain into the back of both calfs x2 years IV Contrast: 10 cc Gadobutrol TECHNIQUE: Multiplanar, multisequence images of the lumbar spine were acquired without and with 10 mL intravenou s Gadobutrol gadolinium contrast. FINDINGS: Alignment: The lumbar vertebral bodies have preserved heights. Minimal grade 1 anterolisthesis of L4- L5 without evidence of pars defects. Straightening of the normal lumbar lordosis. Cord: The conus medullaris and the distal spinal cord appear unremarkable with regards to their signa l intensity and morphology. Bones/Discs: Bone signal is within normal limits. Multilevel anterior osteophytosis. Type I Modic ch anges involving the anterior aspect of the superior endplate of the L4 vertebral body with associated contrast enhancement. Multilevel disc desiccation. Disc height loss at L2-L3 and L3-L4. L1-L2: No significant disc pathology. Spinal canal is patent. The neural foramen are patent. L2-L3: Minimal broad-based disc bulge with ligamentum flavum buckling and bilateral facet arthropathy . There is associated edema of the facet joints. No significant spinal canal stenosis. Minimal bilate ral neural foraminal narrowing. L3-L4: Broad-based disc bulge with calcification. Ligamentum flavum buckling and bilateral facet arth ropathy with some edema. Prominent posterior epidural fat. Results in moderate to severe spinal canal stenosis. Mild bilateral neural foraminal stenosis. L4-L5: Minimal broad-based disc bulge. Bilateral facet arthropathy. No significant spinal canal steno sis. Minimal bilateral neuroforaminal narrowing. L5-S1: No significant disc pathology. Spinal canal is patent. The neural foramen are patent. Other findings: None. IMPRESSION: Multilevel disc degeneration with associated osteoarthritic changes as described above. No disc herni ation. Moderate to severe spinal canal stenosis at L3-L4 secondary to disc bulge with calcification, ligamentum flavum buckling and facet arthropathy. [facility], , 06/20/2025 3:43 PM
== END | disposition home or self-care (01) ==
LOC: RADMRIMAIN 14:49
PROVIDERS: ATTEND Psychiatry & Neurology Neurology
DX: M48.061 Spinal stenosis, lumbar region without neurogenic claudication (principal); M51.16 Intervertebral disc disorders with radiculopathy, lumbar region
CPT/HCPCS: 72158; A9585